=== PATIENT | female | born 1950 | race Caucasian/White ===

== ENCOUNTER → 2020-02-01 09:30 | Outpatient (BNVA) | payer MEDICARE, OTHER, SELFPAY | PROVIDERS: Family Provider Family Medicine; Referring Provider Nurse Practitioner Family; Visit Provider Podiatrist Foot & Ankle Surgery | DX: M79.672 Pain in left foot (principal) | CPT/HCPCS: 73630 ==

== ENCOUNTER 2020-03-03 07:06 | Outpatient (CLI) | payer MEDICARE, OTHER, SELFPAY ==
--- NOTE | 2020-03-03 08:00 | PFTS_ITS ---
Date of Study:03/03/20 Date of Dictation: 03/10/2020: MECHANICS: Forced vital capacity (FVC) is normal Forced expiratory volume in one second (FEV1) is normal. FEV1/FVC is normal. FLOW VOLUME LOOP: normal. . LUNG VOLUMES: Total lung capacity (TLC) is normal.. Residual volume (RV) is normal DIFFUSING CAPACITY FOR CARBON MONOXIDE: Normal . INTERPRETATION: The PFTs are normal. MTDD
== END 2020-03-03 07:07 | disposition home or self-care (01) ==
LOC: RT 07:11
PROVIDERS: PCP Family Medicine; Visit Provider Family Medicine
DX: R06.00 Dyspnea, unspecified (principal)
CPT/HCPCS: 94010; 94726; 94729

== ENCOUNTER 2020-04-07 07:38 | Observation (INO) | payer MEDICARE, OTHER, SELFPAY ==
[2020-04-07] VITALS (18 sets, daily range): BP systolic 102–125; BP diastolic 45–84; PULSE 68–88; RESP 12–18; TEMP 35.9–36.9; O2SAT 91–96; BMI 25.0
--- NOTE | 2020-04-07 07:46 | CT_ITS ---
WS: [id number] CT ABDOMEN PELVIS TECHNIQUE: Contrast-enhanced CT of the abdomen and pelvis with coronal and sagittal reformatted image s. CLINICAL INFORMATION: RLQ pain COMPARISON: None. DLP: 660.[address] scans at [facility] use at least one of these dose optimization techniques: automat ed exposure control; mA and/or kV adjustment per patient size (includes targeted exams where dose is matched to clinical indication); or iterative reconstruction. FINDINGS: Enhancing fluid distended appendix measuring 10 mm in short axis dimension. Surrounding inflammatory changes and about the appendix and right lower quadrant consistent with acute appendicitis. No eviden ce of drainable abscess or fluid collection. Appendix is retrocecal and traverses cephalad and medial . A few reactive lymph nodes in right lower quadrant. Normal gallbladder. Adrenal glands are normal. Normal renal parenchymal enhancement. No hydronephrosi s. Small renal cysts. Normal GE junction. Normal spleen. Normal pancreas. Normal aorta. Rectosigmoid constipation. No significant free fluid in the pelvis. CT/CT abdomen pelvis w con* [id number] IMPRESSION: 1. Findings compatible with acute appendicitis described above. Appendix is re trocecal and ascends cephalad and medial. 2. No evidence of drainable abscess or fluid collection. Notified Ky Guadarrama DO at 04/07/2020 9:13 AM. .
--- NOTE | 2020-04-07 07:50 | W.ED.ABDPA2 ---
HPI - Abdominal Pain General: Chief Complaint: Abdominal Pain Stated Complaint: RUQ pain Time Seen by Provider: 04/07/20 07:42 History of Present Illness: HPI narrative: Patient is a 69-year-old female that presents with abdominal pain. Patient states she had onset of midline abdominal pain around 8 PM last night. She states that as the night progressed the pain gradually moved to her right lower quadrant. She denies any radiation of the pain currently. She reports one episode of nausea and vomiting that was self-induced last night. She denies fevers or chills. She denies any urinary symptoms. She reports prior hysterectomy. Laying on her right side seems to make the pain worse but no other alleviating factors noted. She denies any diarrhea but feels as though her stool was harder than usual last night. MD elicited complaint: abdominal pain Onset (ago): hour(s) Location: RLQ Radiation: none Associated Symptoms: Reports nausea and vomiting; Denies change in stool character, constipation, diarrhea, dysuria, fever(s), hematuria, melena and syncope Review of Systems General: Reports: 10 or more systems reviewed and unremarkable except in HPI and below Const: Denies: fever(s) Eyes: Denies: blurry vision ENMT: Denies: nasal congestion Card: Denies: chest pain, palpitations, syncope or dyspnea on exertion Resp: Denies: dyspnea or productive cough GI: Reports: abdominal pain, nausea and vomiting; Denies: diarrhea, constipation, change in stool character or melena : Denies: dysuria or hematuria Musc: Denies: neck pain or back pain Skin/Breast: Denies: rash or new lesions Neuro: Denies: headache(s) or dizziness Psych: Denies: anxiety Teofilo/Lymph: Denies: easy bleeding, petechiae or purpura PFSH ED PFSH: Medical History Tremor Surgical History History of arthroscopic knee surgery bilateral knee by Dr. Bowers History of hysterectomy 2016 Social History Smoking and tobacco status: never smoked Alcohol intake: current Alcohol intake frequency: holidays/special occasions only Alcohol type: wine Physical Exam Const: COMMON NORMALS: no acute distress, patient oriented x3, alert and well nourished HENMT: COMMON NORMALS: normocephalic, atraumatic, EAC's normal, TM's normal bilaterally and Normal external nose present HEAD & SCALP: normocephalic and atraumatic FACE & SINUS: normal facial exam and face symmetric NOSE: Normal external nose present EXTERNAL AUDITORY CANAL: EAC's normal TYMPANIC MEMBRANE: TM's normal bilaterally MOUTH: Normal oral and palatal mucosa present and moist mucous membranes abnormal Eye: COMMON NORMALS: Equal, round and reactive pupils present PUPIL: Yes Equal, round and reactive pupils present Neck/C-Spine: GENERAL: Yes normal visual inspection Chest: COMMONS NORMALS: normal inspection of the chest Resp: COMMON NORMALS: normal respiratory effort, No retractions, No use of accessory muscles and clear to auscultation bilaterally AUSCULTATION: clear to auscultation bilaterally Cardio: COMMON NORMALS: regular rate, regular rhythm, S1 normal heart sound present, S2 normal heart sound present and No murmurs present (Cardio) RATE: regular rate RHYTHM: regular rhythm HEART SOUNDS: S1 normal heart sound present and S2 normal heart sound present GI: COMMON NORMALS: No hepatosplenomegaly present INSPECTION: Yes normal to inspection AUSCULTATION: Yes normoactive bowel sounds PALPATION: Yes Tenderness to palpation present (GI), Yes Guarding due to palpation present (GI) in the RLQ and Yes No hepatosplenomegaly present RECTAL EXAM: deferred : COMMON NORMALS: Yes no CVA tenderness BLADDER/KIDNEY EXAM: Yes no CVA tenderness Back/Pelvis: COMMON NORMALS: no CVA tenderness Neuro: COMMON NORMALS: patient oriented x3 and moves all extremities SENSORIUM/ORIENTATION: Yes alert SPEECH: speech normal Psych: COMMON NORMALS: mental status grossly normal Skin: COMMON NORMALS: no rashes or lesions noted GENERAL SKIN EXAM: no rashes or lesions noted Course Vital Signs: Vital signs: Vital Signs Temperature 97.3 F L 04/07/20 07:44 Pulse Rate 73 04/07/20 10:07 Respiratory Rate 15 04/07/20 07:44 Blood Pressure 114/53 04/07/20 10:07 Pulse Oximetry 96 04/07/20 10:07 MDM - Abdominal Pain MDM Narrative: Medical decision making narrative: Patient remained stable in ED. Noted to have an 18.6 thousand white count. Remainder of her lab works unremarkable. CT of her abdomen pelvis demonstrates findings consistent with acute appendicitis. Case was discussed with Dr. Russ, surgeon on-call and he accepts the patient for observation admission. He would like normal saline started as well as Zosyn. Lab Data: Labs: Lab Results 04/07/20 04/07/20 04/07/20 Range/Units 08:00 08:08 08:08 WBC 18.6 H (4.0-10.0) 10^3/ uL RBC 4.72 (4.1-5.3) 10^6/u L Hgb 13.8 (11.5-15.3) g/dL Hct 41.6 (37.0-47.0) % MCV 88.1 (81-99) fL MCH 29.2 (28.0-34.0) pg MCHC 33.2 (30.0-36.0) g/dL RDW 12.3 (12.1-15.1) % Plt Count 207 (130-400) 10^3/c mm MPV 11.5 H (7.4-10.4) fL Neut % (Auto) 84.0 % Lymph % (Auto) 7.0 % [place] % (Auto) 7.9 % Eos % (Auto) 0.2 % Baso % (Auto) 0.3 % Neut # (Auto) 15.61 H (1.8-7.7) 10^3/u L Lymph # (Auto) 1.3 (0.8-4.8) 10^3/u L [place] # (Auto) 1.5 H (0.2-0.9) 10^3/u L Eos # (Auto) 0.0 (0.0-0.8) 10^3/u L Baso # (Auto) 0.1 (0.0-0.1) 10^3/u L Nucleated RBC % (a uto) 0 % Nucleated RBCs # 0.0 /100WBC Sodium 137 (136-145) mmol/L Potassium 4.0 (3.5-5.1) mmol/L Chloride 101 (98-107) mmol/L Carbon Dioxide 25 (22-29) mmol/L Anion Gap 15.0 (5-19) BUN 14 (8-23) mg/dL Creatinine 0.6 (0.5-0.9) mg/dL GFR Calculation 99.7 (90-130) mL/min Glucose 127 H (65-115) mg/dL Calculated Osmolal ity 286 (285-295) mOsm/k g Calcium 9.3 (8.5-10.5) mg/dL Total Bilirubin 0.4 (0.15-1.2) mg/dL AST 20 (0-32) U/L ALT 15 (0-33) U/L Alkaline Phosphata se 87 (35-105) IU/L Total Protein 7.2 (6.6-8.7) g/dL Albumin 4.3 (3.5-5.2) g/dL Globulin 2.9 (1.3-4.6) g/dL Lipase 24 (13-60) U/L Urine Color Yellow (Yellow) Urine Appearance Clear (CLEAR) Urine pH 8 H (5-7) Ur Specific Gravit y 1.010 (1.005-1.030) Urine Protein Neg (Negative) Urine Glucose (UA) Norm (Normal) Urine Ketones Negative (Negative) Urine Blood Neg (Negative) Urine Nitrate Negative (Negative) Urine Bilirubin Neg (Negative) Prot Sulfosalicyli c Acd Negative (Negative) Urine Urobilinogen Norm (Negative) mg/dL Ur Leukocyte Martina ase Negative (Negative) Discharge Plan Discharge Patient Disposition: Placed in Observation Clinical Impression: Acute appendicitis Qualifiers: Acute appendicitis type: with localized peritonitis Appendicitis gangrene presence: without gangrene Appendicitis perforation presence: without perforation Appendicitis abscess presence: without abscess Qualified Code(s): K35.30 - Acute appendicitis with localized peritonitis, without perforation or gangrene Coding Level of Care Code ED Geophysical Computer for [facility] Fwd Exam Comprehensive
[2020-04-07] MEDS: morphine 4 mg/mL SDV 1 mL IVP (08:10)
[2020-04-07] MEDS: ondansetron 2 mg/ML SDV 2 mL 4 MG IVP (08:10)
[2020-04-07 08:19] LABS: Basophils # 0.1 10^3/uL (0.0-0.1); Basophils % 0.3 %; Eosinophils % 0.2 %; Hematocrit 41.6 % (37.0-47.0); Hemoglobin 13.8 g/dL (11.5-15.3); Lymphocytes # 1.3 10^3/uL (0.8-4.8); Mean Corpuscular HGB Conc 33.2 g/dL (30.0-36.0); Mean Corpuscular Hemoglobin 29.2 pg (28.0-34.0); Mean Corpuscular Volume 88.1 fL (81-99); Mean Platelet Volume 11.5 fL (7.4-10.4); Monocytes # 1.5 10^3/uL (0.2-0.9); Monocytes % 7.9 %; Neutrophils # 15.61 10^3/uL (1.8-7.7); Nucleated Red Blood Cells % 0 %; Platelet Count 207 10^3/cmm (130-400); Red Blood Count 4.72 10^6/uL (4.1-5.3); Red Cell Distribution Width 12.3 % (12.1-15.1); White Blood Count 18.6 10^3/uL (4.0-10.0)
[2020-04-07 08:35] LABS: Alanine Aminotransferase 15 U/L (0-33); Albumin Level 4.3 g/dL (3.5-5.2); Alkaline Phosphatase 87 IU/L (35-105); Aspartate Amino Transferase 20 U/L (0-32); Blood Urea Nitrogen 14 mg/dL (8-23); Calcium 9.3 mg/dL (8.5-10.5); Carbon Dioxide 25 mmol/L (22-29); Chloride 101 mmol/L (98-107); Globulin 2.9 g/dL (1.3-4.6); Glomerular Filtration Rate 99.7 mL/min (90-130); Glucose 127 mg/dL (65-115); Lipase 24 U/L (13-60); Osmolality Calculated 286 mOsm/kg (285-295); Sodium 137 mmol/L (136-145); Total Bilirubin 0.4 mg/dL (0.15-1.2); Total Protein 7.2 g/dL (6.6-8.7)
[2020-04-07 08:49] LABS: Add Urine Microscopic? NO
--- NOTE | 2020-04-07 08:51 | PC.NURSE ---
pt to CT by stretcher with tech
[2020-04-07] MEDS: iohexol 300 mg/mL 100 mL Btl IV (08:58)
[2020-04-07 09:09] LABS: Bilirubin Urine Neg (Negative); Blood Urine Neg (Negative); Glucose Urine UA Norm (Normal); Ketones Urine Negative (Negative); Leukocyte Esterase Urine Negative (Negative); Nitrate Urine Negative (Negative); Protein Urine Neg (Negative); Sulfosalicylic Acid Urine Negative (Negative); Urine Appearance Clear (CLEAR); Urine Color Yellow (Yellow); Urobilinogen Urine Norm (Negative); pH Urine 8 (5-7)
--- NOTE | 2020-04-07 09:17 | PM.HP ---
Providers/Chief Complaint Primary Care Provider: Lake Vela MD Chief Complaint: RUQ pain History of Present Illness HPI Ms. Jade Hugo is a pleasant 69 year old female presents to the emergency department with worsening abdominal pain that started in the upper abdomen and shifted towards the right lower quadrant since yesterday. Patient describes the pain as being sharp not being referred, moving around makes it worse and laying down flat makes it better and morphine IV. Patient reports no history of previous episodes and she had a colonoscopy about 5 years ago that was normal per her description. She denies any other medical comorbidities except for anxiety and essential tremors. Further work-up in the emergency department showed leukocytosis of 18.[address] scan of the abdomen and pelvis was done. CT scan of the abdomen and pelvis showed: Enhancing fluid distended appendix measuring 10 mm in short axis dimension. Surrounding inflammatory changes and about the appendix and right lower quadrant consistent with acute appendicitis. No evidence of drainable abscess or fluid collection. Appendix is retrocecal and traverses cephalad and medial. A few reactive lymph nodes in right lower quadrant. Normal gallbladder. Adrenal glands are normal. Normal renal parenchymal enhancement. No hydronephrosis. Small renal cysts. Normal GE junction. Normal spleen. Normal pancreas. Normal aorta. Rectosigmoid constipation. No significant free fluid in the pelvis. CT/CT abdomen pelvis w con* [id number] IMPRESSION: 1. Findings compatible with acute appendicitis described above. Appendix is retrocecal and ascends cephalad and medial. 2. No evidence of drainable abscess or fluid collection. General surgery was consulted for further evaluation and management Patient reports no history of bleeding or anesthesia problems Patient was seen and evaluated in emergency department room #12 Review of Systems General: Reports: 10 or more systems reviewed and unremarkable except in HPI and below Medications/Allergies Home Medications Medication Instructions Recorded Confirmed Last Taken Type diazepam 2 mg tablet 2 mg PO BID PRN 02/01/20 04/07/20 04/06/20 History naproxen 500 mg tablet 500 mg PO BID PRN 02/01/20 04/07/20 Unknown History propranolol 80 mg PO BID 04/07/20 04/07/20 04/06/20 History Allergies Allergy/AdvReac Type Severity Reaction Status Date / Time No Known Allergies Allergy Verified 04/07/20 09:47 PFSH Acute PFSH: Medical History Tremor Surgical History History of arthroscopic knee surgery bilateral knee by Dr. Bowers History of hysterectomy 2016 Social History Smoking and tobacco status: never smoked Alcohol intake: current Alcohol intake frequency: holidays/special occasions only Alcohol type: wine Vitals/I&O/Wt Last Vital Signs Temp 97.3 F L 04/07/20 07:44 Pulse 70 04/07/20 08:50 Resp 15 04/07/20 07:44 BP 104/53 04/07/20 08:50 Pulse Ox 92 04/07/20 08:50 Weight last 48 hrs Weight 160 lb Physical Exam Narrative: EXAM NARRATIVE: Patient is conscious alert oriented X3 BMI 25.1 Head and neck examination PERRLA no masses no cervical lymphadenopathy no jaundice Cardiac examination audible S1-S2 no murmurs no gallops no arrhythmias Chest is clear bilateral,abscence of Rhonchi or wheezes,no surgical emphysema Abdomen right lower quadrant tenderness, with localized rigidity and guarding maximal tenderness appreciated at McBurney's point nondistended otherwise soft no organomegaly guarding or rigidity/no signs of peritonitis Extremities no cyanosis no clubbing no edema Data : 04/07/20 08:08 04/07/20 08:08 A&P Assessment and plan (1) Acute appendicitis: After thorough history physical examination and reviewing the chart and images with my personal interpretion of the CT scan images, I counseled the patient for laparoscopic appendectomy possible open. Indications, risks, benefits and alternatives were all discussed with the patient and did agree to proceed. Rationale was carefully and clearly discussed with the patient.Appropriate informed consent have been reviewed and signed Status: Acute Attestations Medical Necessity Statement*: Observation for perioperative care for appendicitis Time Spent in Patient Care: (>than 50% of time spent in counselling and/or direct pt care on unit). Coding Level of Care Code Acute Assistant Infant Toddler Teacher for santos Chatterjee Diagnoses Acute appendicitis K35.80
--- NOTE | 2020-04-07 09:29 | PC.PHAR ---
pt takes Propranolol (2) 40mg = 80mg BID. [facility] filled as 40mg TID- Dr. Vela's office verified he changed her to 80mg BID.
[2020-04-07] MEDS: piperacillin-tazobactam 2.25 GM in sodium chloride 0.9% (plus) 50 ML IV (10:05)
[2020-04-07] MEDS: sodium chloride 0.9% 1,000 ML 100 ML IV ×2 (10:05→20:17)
[2020-04-07] MEDS: sodium chloride 0.9% 1,000 ML 30 ML IV (13:30)
[2020-04-07] MEDS: lidocaine 2% INJ 20 mL INJECTION (14:31)
--- NOTE | 2020-04-07 14:33 | P.OP_ITS ---
Operative Report Date of procedure: April 07, 2020 Pre-op Diagnosis: Acute appendicitis Post-op diagnosis: other (Acute retrocecal suppurative appendicitis) Procedure Done: Laparoscopic appendectomy Specimens removed/disposition: Appendix Surgeon: Justin Russ Booth Cashier: Surgical efra Cobian Circulating nurse Chelsea Anesthesia: General (ESTEBANA DIE CAST PATTERNMAKER Anderson) Estimated blood loss (mL): 5 Condition: stable Brief History: This is a pleasant 69 years old female patient presenting with worsening abdominal pain was found to have acute appendicitis. Full H&P per chart. After thorough history physical examination and reviewing the chart and images with my personal interpretion, I counseled the patient for laparoscopic appendectomy possible open. Indications, risks, benefits and alternatives were all discussed with the patient and did agree to proceed. Rationale was carefully and clearly discussed with the patient.Appropriate informed consent have been reviewed and signed Procedure: Patient after being identified in the holding area and asked to void urine, and informed consent per chart ,patient was then taken back to the OR pl aced in supine position got intubated by anesthesia left arm was tucked tucked ,Timeout was done verifying the patient's name/date of /planned procedure and destination after the procedure, all were in agreement., preoperative antibiotics administered per protocol. prep and drape of the abdomen was done under the usual sterile technique. Started by longitudinal skin incision supraumbilical using a Davis trocar technique safe entry to the abdominal cavity was achieved verified by using 10 mm zero degree laparoscopy, switched to a 30? scope under direct visualization a suprapubic 5 mm trocar was inserted followed by another 5 mm trocar inserted in the left lower quadrant, I was able to position the patient in an T Flores and left side down, dissection of the prececal acutely inflamed appendix with suppuration there was some adhesions towards the lateral pelvic wall that was taken down by sharp and blunt dissection, attention was deviated to the healthy base of the appendix where I had to switch the camera to 5 mm 30? scope got introduced through the left lower quadrant and through the Davis trocar under direct visualization a GI stapler 45 mm blue load was applied at the healthy part of the base of the appendix, and an Endoloop PDS was applied onto the mesoappendix for control , the appendix was then retrieved in an Endo Catch bag, final survey was done of the abdomen and pelvis , irrigation with warm saline, and suction was obtained, were mercury fluid like in the pelvis due to reaction from the inflamed appendix. Multiple 5 mm clips were applied onto the mesoappendix as well as the appendectomy staple line and a right lateral pelvic wall for minimal oozing. Final look laparoscopy was done showing no other abnormalities or injuries, all trocars were taken out under direct visualization after the supraumblical trocar site was closed by 0 Vicryl sutures under direct vision using fascial closure device ,followed by skin closure using 4-0 Monocryl of all trocar site incisions. infiltration of local lidocaine 2% was done to all incision sites.Dry dressing was applied. Count was completed at the end of the procedure for [place] , sponges and instruments Patient tolerated the procedure well and was transferred to the recovery area after extubation. I was present for the whole entire procedure
--- NOTE | 2020-04-07 15:39 | ANE.PACU2 ---
Inpatient post-anesthesia follow up: Airway intact: Yes Vital signs: Temperature 98 F Pulse Rate [Right Radial] 85 Pulse Rate 73 Respiratory Rate 17 Blood Pressure [Ri ght Arm] 119/65 Blood Pressure 116/58 Pulse Oximetry 93 Oxygen Delivery Me thod Room Air Oxygen Flow Rate Fraction of Inspir ed Oxygen Hydration adequate: Yes Nausea and vomiting: No Pain level: 2 Mental status: Baseline
[2020-04-07] MEDS: piperacillin-tazobactam 3.375 GM in sodium chloride 0.9% (plus) 50 ML IV (17:43)
[2020-04-08] VITALS: BP 96/57; PULSE 74; RESP 18; TEMP 36.4; O2SAT 91
[2020-04-08] MEDS: piperacillin-tazobactam 3.375 GM in sodium chloride 0.9% (plus) 50 ML IV ×2 (01:29→08:20)
--- NOTE | 2020-04-08 01:35 | PC.NURSE ---
Pt denies passing gas at this time. States she is not having pain unless she gets up & moves around. Refusing pain meds at this time. Denies nausea.
[2020-04-08 03:01] LABS: Basophils % 0.1 %; Hematocrit 37.8 % (37.0-47.0); Hemoglobin 12.5 g/dL (11.5-15.3); Mean Corpuscular HGB Conc 33.1 g/dL (30.0-36.0); Mean Corpuscular Hemoglobin 29.3 pg (28.0-34.0); Mean Corpuscular Volume 88.7 fL (81-99); Monocytes # 0.4 10^3/uL (0.2-0.9); Monocytes % 2.6 %; Neutrophils # 12.86 10^3/uL (1.8-7.7); Neutrophils % 89.7 %; Nucleated Red Blood Cells % 0 %; Platelet Count 191 10^3/cmm (130-400); Red Blood Count 4.26 10^6/uL (4.1-5.3); Red Cell Distribution Width 12.7 % (12.1-15.1); White Blood Count 14.4 10^3/uL (4.0-10.0)
[2020-04-08] MEDS: HYDROcodone-acetaminophen 5-325 mg Tablet 1 TAB PO (03:11)
[2020-04-08 03:24] LABS: Anion Gap 11.9 (5-19); Blood Urea Nitrogen 10 mg/dL (8-23); Calcium 8.8 mg/dL (8.5-10.5); Carbon Dioxide 26 mmol/L (22-29); Chloride 105 mmol/L (98-107); Glomerular Filtration Rate 123.1 mL/min (90-130); Glucose 138 mg/dL (65-115); Osmolality Calculated 289 mOsm/kg (285-295); Potassium 3.9 mmol/L (3.5-5.1); Sodium 139 mmol/L (136-145)
[2020-04-08 04:00] VITALS: BP 107/61; PULSE 74; RESP 16; TEMP 36.5; O2SAT 90
--- NOTE | 2020-04-08 05:52 | PC.NURSE ---
Pt up to bathroom, states she has finally passed a little gas.
[2020-04-08] MEDS: sodium chloride 0.9% 1,000 ML 100 ML IV (06:15)
--- NOTE | 2020-04-08 06:15 | PM.SDS ---
Short Stay Summary Providers Date of Admit/Discharge: 04/08/20 Attending Provider: Justin Russ MD Primary Care Provider: Lake Vela MD Chief Complaint: RUQ pain HPI History of Present Illness Jade Hugo is a 69 year old female resented to the emergency department with worsening abdominal pain was found to have acute appendicitis. Review of Systems General: Reports: 10 or more systems reviewed and unremarkable except in HPI and below Home Meds/Allergies Home Medications and Allergies Home Medications Medication Instructions Recorded Confirmed Type diazepam 2 mg tablet 2 mg PO BID PRN 02/01/20 04/07/20 History naproxen 500 mg tablet 500 mg PO BID PRN 02/01/20 04/07/20 History propranolol 80 mg PO BID 04/07/20 04/07/20 History Allergies Allergy/AdvReac Type Severity Reaction Status Date / Time No Known Allergies Allergy Verified 04/07/20 09:47 PFSH Acute PFSH: Medical History Acute appendicitis Tremor Surgical History History of arthroscopic knee surgery bilateral knee by Dr. Bowers History of hysterectomy 2016 Social History Smoking and tobacco status: never smoked Alcohol intake: current Alcohol intake frequency: holidays/special occasions only Alcohol type: wine Vitals/I&O/Wt Last Vital Signs Temp 97.7 F 04/08/20 04:00 Pulse 74 04/08/20 04:00 Resp 16 04/08/20 04:00 BP 107/61 04/08/20 04:00 Pulse Ox 90 04/08/20 04:00 04/07/20 04/07/20 04/08/20 14:59 22:59 06:59 Intake Total 150 / 150 1410 / 1560 1196.667 / 2756.667 Output Total 400 / 420 1850 / 2270 Balance 130 / 130 1010 / 1140 -653.333 / 486.667 Weight last 48 hrs Weight 160 lb Physical Exam Narrative: EXAM NARRATIVE: Patient is conscious alert oriented X3 BMI 25 Head and neck examination PERRLA no masses no cervical lymphadenopathy no jaundice Cardiac examination audible S1-S2 no murmurs no gallops no arrhythmias Chest is clear bilateral,abscence of Rhonchi or wheezes,no surgical emphysema Abdomen nontender except mildly at the incision site nondistended soft no organomegaly guarding or rigidity/no signs of peritonitis Extremities no cyanosis no clubbing no edema Hospital Course Hospital Course Patient undergone uneventful postoperative course status post laparoscopic appendectomy for suppurative appendicitis. Tolerated p.o. intake and continued to pass gas and had her pain under control. Continue to have good urine output and stable vital signs. Discharge Summary Patient met the appropriate criteria for safe discharge from the hospital on oral antibiotics and pain medications the plan to follow-up with surgery office in 10 days SSS Data Data Completed and Pending: Completed Studies During Hospitalization Category Date Time Status CT abdomen pelvis w con* [id number] Urge nt Cat Scan 04/07/20 07:46 Completed Pending at discharge Category Date Time Status ES surgery / GI i mages Routine Exams 04/07/20 13:10 Taken Pathology: Surgic al [PTH] Routine Pth 04/07/20 14:39 Ordered Diagnoses at Discharge Discharge Diagnosis (1) Acute appendicitis: Status: Resolved Permanent problem details: Condition resolved Qualifiers: Acute appendicitis type: with localized peritonitis Appendicitis abscess presence: without abscess Appendicitis gangrene presence: without gangrene Appendicitis perforation presence: without perforation Qualified Code(s): K35.30 - Acute appendicitis with localized peritonitis, without perforation or gangrene Discharge Plan Discharge Patient Disposition: Home Condition: Stable Prescriptions: [place] 5-325 mg tablet 1 tab PO Q6H PRN (Reason: pain) Qty: 28 RF: 0 Augmentin 875-125 mg tablet 1 tab PO Q12H 7 Days Qty: 14 RF: 0 Continued diazepam [Valium] 2 mg tablet 2 mg PO BID PRN (Reason: Anxiety) RF: 0 propranolol 40 mg tablet 80 mg PO BID RF: 0 Held naproxen 500 mg tablet 500 mg PO BID PRN (Reason: Pain) RF: 0 Hold Instructions: Resume on 04/14/20. Discharge Orders: Discharge Order (Routine); Ordered 04/08/20 Ordered By: Justin Russ Referrals: Justin Russ MD [Physician] - 04/20/20 1:15 pm (Return to surgery office in 10 days) Lake Vela MD [Primary Care Provider] - 04/14/20 1:20 pm Discharge Diet: Advance as tolerated Discharge Activity: Limit activity as instructed Patient Instructions: Hydrocodone/Acetaminophen (By mouth), Amoxicillin/Clavulanate Potassium (By mouth), Appendicitis (GEN), Laparoscopic Appendectomy (DC) Activity Restrictions/Additional Instructions: 1. Patient can shower after 48 hours from surgery 2. Remove surgical glue 7 to 10 days after surgery, if there is a secondary dressing can take down after 48 hours. 3. Up and walking as tolerated 4. Do not lift more than 5 pounds first 2 weeks after surgery and not more than 25 pounds 6 to 8 weeks after surgery. 5. Do not operate heavy machinery or drive while using pain medications. 6.Contact the office or return to the ER for worsening nausea vomiting fevers or chills, or noticing any redness around incision sites or discharge. Attestations Medical Necessity Statement*: Observation status perioperatively for laparoscopic appendectomy for pain control and antimicrobial therapy in the form of IV Zosyn Time Spent in Patient Care*: less than 30 min Specific Discharge Activities: Specific discharge activities: educating patient and educating and/or supporting family/caregiver Status at Discharge: Cognitive status at discharge: cognitively intact, Behavioral status at discharge: cooperative, Overall status at discharge: patient is progressing back to baseline Quality Metrics Clinical Quality Measures: During this hospital stay, did patient experience: None Coding Level of Care Code Acute Interlibrary Loan Services Librarian for Oscar Chatterjee Diagnoses Acute appendicitis K35.30 Acute appendicitis type: with localized peritonitis Appendicitis abscess presence: without abscess Appendicitis gangrene presence: without gangrene Appendicitis perforation presence: without perforation
[2020-04-08 07:55] VITALS: BP 95/57; PULSE 68; RESP 18; TEMP 36.6; O2SAT 91
--- NOTE | 2020-04-08 10:24 | PC.CHAP ---
Pastoral Care Encounter/Spiritual Assessment Type of Contact [] Declined clocksmith visit [] Patient/Family/Request visit [] Outpatient visit [] Follow-up visit [] Physician referral [] Code/Alert [xx] Routine visit [] Staff referral [] Actively dying [] Patient sleeping [] Family support [] [] Out of room [] Palliative care [] [] Receiving care in room [] Pre-surgical visit [] Trauma [] Long length of stay [] ICU visit [] Other: Relational/Emotional Strength [x] Patient feels connected with others/family/visitors/staff [] Distress [] Loneliness/isolation [] Abandonment Spirituality of Patient [x] Person of Stephanie [] Attends Restorationist of their Stephanie [] Believes in Prayer [] Reads Bible or Faith materials [] There are Spiritual issues to be addressed Fare Enforcement Officer Interventions [x] Prayer [x] Active listening [x] Non-anxious presence [x] Spiritual/emotional support [x] Crisis/trauma care [] Spiritual counseling [] Bereavement support [] Provided bereavement packet [] Provided Bible/devotional materials [] Provided toy/stuffed animal, coloring book to patient or family member [] Provided Communion [] Anointing/[place] [] Salvation [] Completed spiritual assessment [] Other: Impact on Illness or Injury [] Angry [] Fearful [] Anxious [] Often cries [] Exhaustion [] Unable to work [] Unable to attend restoration [] Unable to walk/stand [] Unable to read [] Unable to drive [] Unable to eat/drink [] Unable to sleep [] Unable to be with family [] Patient intubated [] Other: Summary patient in alots of pain Time spent with patient 10 min
[2020-04-08 12:00] VITALS: BP 99/57; PULSE 72; RESP 18; TEMP 36.3; O2SAT 97
[2020-04-08 13:29] VITALS: BP 99/57; PULSE 72; RESP 18; TEMP 36.3; O2SAT 97
== END 2020-04-08 13:11 | disposition home or self-care (01) ==
LOC: ER 10:13 → MEDSURG 10:20
PROVIDERS: Admitting Provider Surgery; Emergency Provider Emergency Medicine; PCP Family Medicine; Visit Provider Surgery
PROC: 0DTJ4ZZ Resection of Appendix, Percutaneous Endoscopic Approach (ICD-10-PCS; CPT 44970; principal; 2020-04-07 12:20)
DX: K35.80 Unspecified acute appendicitis (principal)
CPT/HCPCS: 44970; 36415; 74177; 80048; 80053; 81003; 83690; 85025; 88304; 96365; 96366; 96374; 96375; 99285; G0378; J0131; J1100; J2270; J2370; J2405; J2543; J2704; J2710; J3010; J3490; J7030; Q9967

== ENCOUNTER → 2020-08-17 15:05 | Outpatient (BNVA) | payer MEDICARE, OTHER, SELFPAY | PROVIDERS: PCP Family Medicine; Visit Provider Surgery | DX: Z41.9 Encounter for procedure for purposes other than remedying health state, unspecified (principal); Z20.822 Contact with and (suspected) exposure to COVID-19 | CPT/HCPCS: 87635 ==

== ENCOUNTER 2020-08-22 06:19 | Day surgery (SDC) | payer MEDICARE, OTHER, SELFPAY ==
[2020-08-19 08:18] VITALS: BMI 24.3
[2020-08-22] VITALS (7 sets, daily range): BP systolic 108–131; BP diastolic 61–100; PULSE 62–76; RESP 17–20; TEMP 36.1–36.5; O2SAT 94–98
[2020-08-22] MEDS: acetaminophen 1,000 MG/100 ML PIGGYBACK 400 MG IV (06:59)
[2020-08-22] MEDS: sodium chloride 0.9% 1,000 ML 30 ML IV (06:59)
--- NOTE | 2020-08-22 07:38 | ANES.PREANE2 ---
Pre-Anesthetic Assessment Pre-Anesthetic Assessment: Height/Weight: Height 1.7 m Weight 70.307 kg Temp Pulse Resp BP Pulse Ox 97.7 F 63 18 108/73 98 08/22/20 06:32 08/22/20 06:32 08/22/20 06:32 08/22/20 06:32 08/22/20 06:32 Preop Diagnosis: Symptomatic hemorrhoids Proposed Procedure: Operation Date: 08/22/20 07:45 Proposed Procedures p Colonoscopy [id number] k62.5(Not Applicable) - Justin Russ MD s Exam Under Anesthesia(Not Applicable) - Justin Russ MD s possible Hemorroidectomy(Not Applicable) - Justin Russ MD Was Beta Valentina taken within 24 hours: Yes (takes for tremors) Was Clonidine taken within 24 hours: N/A Last intake: Intake Last Liquid Date 08/21/20 Last Liquid Time 21:00 Last Solid Date 08/13/20 Last Solid Time 19:00 Social: Social History: No alcohol and No tobacco Exam: Pre-Anes Outpt Exam: alert, oriented x 3, clear to auscultation bilaterally and regular rate & rhythm Airway: Submandibular: WNL Cervical ROM: WNL Dentition: Full History/ROS: No significant history except as noted Neuropsych: Comments: tremors Anesthetic Plan: ASA status: 2 Anesthesia: General Risk of > 500 ml blood loss (7ml/kg in children): No Meds/Allergies Current Medications: Current Medications Generic Name Dose Route Start Last Admin Trade Name Freq PRN Reason Stop Dose Admin Sodium Chloride 1,000 mls @ 30 ml s/hr 08/22/20 06:30 08/22/20 06:59 Sodium Chloride 0.9% IV 08/23/20 06:29 30 mls/hr .Q24H EZRA Administration PFSH Anesthesia PFSH: Medical History Acute appendicitis Condition resolved Tremor Surgical History History of arthroscopic knee surgery bilateral knee by Dr. Bowers History of hysterectomy 2015 Social History Smoking and tobacco status: never smoked Alcohol intake: current Alcohol intake frequency: holidays/special occasions only Alcohol type: wine Data Anesthesia Cardiac Studies: No Data to Display
--- NOTE | 2020-08-22 08:13 | W.PM.OPSUD ---
Surgery/Procedure H&P Update DATE OF PROCEDURE: August 22, 2020 DATE H&P PERFORMED: 07/28/20 H&P UPDATE INFORMATION: I have reviewed H&P completed within last 30 days, I have examined patient prior to procedure and No changes to prior documentation PREOP DIAGNOSIS: Symptomatic hemorrhoids PRIMARY INDICATION FOR PROCEDURE: The same PLANNED PROCEDURE: Operation Date: 08/22/20 07:45 Proposed Procedures p Colonoscopy [id number] k62.5(Not Applicable) - Justin Russ MD s Exam Under Anesthesia(Not Applicable) - Justin Russ MD s possible Hemorroidectomy(Not Applicable) - Justin Russ MD
[2020-08-22] MEDS: piperacillin-tazobactam 3.375 GM in sodium chloride 0.9% (plus) 50 ML IV (08:28)
--- NOTE | 2020-08-22 09:22 | PM.OP ---
Operative Report Date of procedure: August 22, 2020 Pre-op Diagnosis: Symptomatic hemorrhoids Post-op diagnosis: other (Normal colonoscopy and symptomatic right lower lateral hemorrhoid) Post-op Findings: External/internal hemorrhoids /sigmoid colon diverticulosis otherwise normal colonoscopy findings Procedure Done: Colonoscopy Examination under anesthesia with hemorrhoidectomy of right lower lateral hemorrhoid Implants: Packing using Surgicel and Xeroform Specimens removed/disposition: Right lower lateral hemorrhoid Surgeon: Justin Russ Travel Administrator: Kelley Andino Circulating nurse Dia Fowler Anesthesia: MAC (truck railroad and bus motor mechanic Cassius) Estimated blood loss (mL): 5 Condition: stable Disposition: same day Brief History: Symptomatic hemorrhoids. Full H&P informed consent per chart Procedure: Patient was identified in the holding area, was taken to the OR placed first in supine position,IV antibiotics were given with induction time-out was done verifying the patient's name, date of , and procedure, all were in agreement. IV propofol was given by the anesthesia provider, patient was placed in left lateral position.All pressure points were padded. Perianal examination showed right and left lower lateral hemorrhoids right is larger than the left otherwise no anorectal masses Following that a digital rectal examination was done, the colonoscope was then introduced via the anus under direct visualization, all the way to the cecum, prep of the colon was appropriate, there were no polyps identified or masses, yet sigmoid diverticular disease was seen medium in size few without complications or bleeding., the scope was then retrieved back ,time for withdrawal exceeded 6 minutes, carbon dioxide gas was deflated on the way out. Retroflex was done at the end showing showed internal/external hemorrhoid larger on the right side. Prep and drape of the perineum was done under the usual sterile technique Injection of 30 mL Exparel right side only,guiding point was the ischial spine on each side located by the examining finger A lubricated self-retaining proctoscope was inserted, hemostats were applied and using harmonic scalpel the right lower lateral hemorrhoid was excised and sent for permanent pathology, followed by hemostasis and continuous 2-0 chromic catgut was used to approximate the wound edges and an additional interrupted 2-0 chromic catgut was used for hemostasis as well. Hemostasis was achieved, irrigation was done. A piece of Surgicel /piece of Xeroform impregnated with lidocaine 2% jelly was placed in the anal canal, attached to 2-0 silk suture, to help retrieving it by the patient later on ABDs were applied followed by surgical pants Patient was repositioned to supine position, counts of instruments,needles and sponges were completed at the end of the procedure Patient was taken to the recovery area in stable condition I was present for the whole entire procedure
--- NOTE | 2020-08-22 09:39 | SUR.PHASEI ---
PT AWAKE ALERT TALKATIVE DENIES PAIN AND NAUSEA, PT GIVEN WARM BLANKETS X 2 VSS
--- NOTE | 2020-08-22 17:09 | ANE.PACU2 ---
Inpatient post-anesthesia follow up: Airway intact: Yes Vital signs: Temperature 97.0 F Pulse Rate 62 Respiratory Rate 18 Blood Pressure 126/64 Pulse Oximetry 96 Oxygen Delivery Me thod Room Air Oxygen Flow Rate Fraction of Inspir ed Oxygen Hydration adequate: Yes Nausea and vomiting: No Pain level: 1 Mental status: Baseline
== END 2020-08-22 09:35 | disposition home or self-care (01) ==
PROVIDERS: PCP Family Medicine; Visit Provider Surgery
PROC: 0DJD8ZZ Inspection of Lower Intestinal Tract, Via Natural or Artificial Opening Endoscopic (ICD-10-PCS; CPT 45378; principal; 2020-08-22 07:45)
PROC: (CPT 45378; 2020-08-22 07:45)
PROC: (CPT 45378; 2020-08-22 07:45)
DX: K64.8 Other hemorrhoids (principal)
CPT/HCPCS: 45378; 46255; 88304; 96365; C9290; J2543; J2704; J3010; J3490; J7030

== ENCOUNTER 2020-11-24 09:09 | Outpatient (RCR) | payer MEDICARE, OTHER, SELFPAY | END 2020-12-11 23:59 | disposition home or self-care (01) | LOC: SPT 09:09 | PROVIDERS: PCP Family Medicine; Referring Provider Family Medicine; Visit Provider Family Medicine | DX: M19.012 Primary osteoarthritis, left shoulder (principal); M25.519 Pain in unspecified shoulder | CPT/HCPCS: 97110; 97162 ==

== ENCOUNTER 2020-12-12 06:00 | Outpatient (RCR) | payer MEDICARE, OTHER, SELFPAY | END 2021-01-02 23:59 | disposition home or self-care (01) | LOC: SPT 06:00 | PROVIDERS: PCP Family Medicine; Referring Provider Family Medicine; Visit Provider Family Medicine | DX: M25.519 Pain in unspecified shoulder (principal) | CPT/HCPCS: 97110 ==

== ENCOUNTER → 2021-05-13 10:30 | Outpatient (BNVA) | payer MEDICARE, OTHER, SELFPAY | PROVIDERS: PCP Family Medicine; Visit Provider Registered Nurse Neonatal Intensive Care | DX: N39.0 Urinary tract infection, site not specified (principal); R39.9 Unspecified symptoms and signs involving the genitourinary system | CPT/HCPCS: 81000; 87077; 87086; 87184 ==

== ENCOUNTER 2021-08-14 08:52 | Emergency (ER) | payer MEDICARE, OTHER, SELFPAY ==
[2021-08-14 09:04] VITALS: BP 102/57; PULSE 69; RESP 16; TEMP 36.8; O2SAT 96; BMI 23.1
--- NOTE | 2021-08-14 09:20 | W.ED.FEMALGU ---
HPI - Female Genitourinary General: Chief complaint: Urogenital-Female Stated complaint: painful urination Time Seen by Provider: 08/14/21 09:05 Source: patient Mode of arrival: ambulatory Limitations: no limitations History of Present Illness: 71-year-old male presents to the emergency room with complaint of dysuria urgency frequency began 2 days ago no fever sweats or chills. MD elicited complaint: dysuria and UTI Onset (ago): day(s) (2) Severity: mild Urinary symptoms: Dysuria, Frequency and Hematuria Exacerbating factors: none Relieving factors: none Associated symptoms: Deny abdominal pain, short of breath, fevers/chills, headache(s), nausea, rash, seizures, syncope, vaginal bleeding, vaginal discharge or weakness Treatment prior to arrival: none Review of Systems Const: Denies: fever(s), chills, body aches, change in appetite, fatigue or malaise ENMT: Denies: throat pain, ear or mastoid pain, nasal discharge or nasal congestion Card: Denies: chest pain or syncope Resp: Denies: dyspnea, productive cough or non-productive cough GI: Denies: abdominal pain, nausea or vomiting : Reports: difficulty voiding, dysuria and urinary frequency; Denies: flank pain or vaginal discharge Skin/Breast: Denies: rash or pruritus Neuro: Denies: headache(s) PFS ED PFSH: Medical History Acute appendicitis Condition resolved Diverticulosis Hemorrhoids Tremor Surgical History History of arthroscopic knee surgery bilateral knee by Dr. Bowers History of hysterectomy 2016 Social History Alcohol intake: current Alcohol intake frequency: holidays/special occasions only Alcohol type: wine Physical Exam Const: COMMON NORMALS: no acute distress GENERAL APPEARANCE: cooperative and comfortable ORIENTATION/CONSCIOUSNESS: Yes awake, Yes oriented to person, Yes oriented to place and Yes oriented to time HENMT: COMMON NORMALS: normocephalic, atraumatic and hearing grossly normal bilaterally HEAD & SCALP: normocephalic and atraumatic Neck/C-Spine: COMMON NORMALS: no JVD Resp: COMMON NORMALS: normal respiratory effort, No retractions, No use of accessory muscles and clear to auscultation bilaterally AUSCULTATION: clear to auscultation bilaterally Cardio: COMMON NORMALS: no JVD, regular rate, regular rhythm and No murmurs present (Cardio) RATE: regular rate RHYTHM: regular rhythm GI: COMMON NORMALS: Soft to palpation and No hepatosplenomegaly present AUSCULTATION: Yes normoactive bowel sounds PALPATION: Yes Soft to palpation, No Tenderness to palpation present (GI), No Guarding due to palpation present (GI) and Yes No hepatosplenomegaly present : COMMON NORMALS: Yes no CVA tenderness BLADDER/KIDNEY EXAM: Yes no CVA tenderness SPECULUM EXAM - VAGINA: No vaginal bleeding OB/EXTERNAL & SPECULUM: No vaginal bleeding Back/Pelvis: COMMON NORMALS: no CVA tenderness Extremity: COMMON NORMALS: normal to inspection, capillary refill normal, no clubbing, cyanosis or edema, no calf tenderness and no pedal edema Neuro: SENSORIUM/ORIENTATION: Yes oriented to person, Yes oriented to place and Yes oriented to time Skin: COMMON NORMALS: no rashes or lesions noted GENERAL SKIN EXAM: no rashes or lesions noted Course Vital Signs: Vital signs: Vital Signs Temperature 98.3 F 08/14/21 09:04 Pulse Rate 60 08/14/21 10:09 Respiratory Rate 16 08/14/21 09:04 Blood Pressure 101/59 08/14/21 10:09 Pulse Oximetry 94 08/14/21 10:09 MDM - Female Medical Decision Making UTI start oral antibiotics follow-up with primary care. Medical Records I reviewed the patient's medical records. Lab Data I reviewed the patient's lab results. Laboratory Results Urine Color Straw (Yellow) 08/14/21 09:10 Urine Appearance Turbid (CLEAR) 08/14/21 09:10 Urine pH 5 (5-7) 08/14/21 09:10 Ur Specific [place] 1.020 (1.005-1.030) 08/14/21 09:10 Urine Protein 3+ (Negative) H 08/14/21 09:10 Urine Glucose (UA) Norm (Normal) 08/14/21 09:10 Urine Ketones Negative (Negative) 08/14/21 09:10 Urine Blood 3+ (Negative) H 08/14/21 09:10 Urine Nitrate Positive (Negative) H 08/14/21 09:10 Urine Bilirubin Neg (Negative) 08/14/21 09:10 Urine Urobilinogen Norm mg/dL (Negative) 08/14/21 09:10 Ur Leukocyte Esterase 2+ (Negative) H 08/14/21 09:10 Urine RBC /hpf (0-2) 08/14/21 09:10 Urine WBC Not Reportable 08/14/21 09:10 Ur Squamous Epith Cells Not Reportable 08/14/21 09:10 Amorphous Sediment Not Reportable 08/14/21 09:10 Urine Bacteria Not Reportable 08/14/21 09:10 Discharge Plan Discharge Patient Disposition: Home Clinical Impression: Urinary tract infection Condition: Stable Prescriptions: New Macrobid 100 mg capsule 100 mg PO BID 7 Days Qty: 14 0RF Rx Instructions: must administer with a meal/food No Action naproxen 500 mg tablet 500 mg PO BID PRN (Reason: Pain) 0RF Hold Instructions: Resume on 04/14/20. nitrofurantoin monohyd/m-cryst [Macrobid] 100 mg capsule 100 mg PO BID 5 Days Qty: 10 0RF Rx Instructions: must administer with a meal/food diazepam 5 mg tablet 5 mg PO BID 0RF hydrocodone-acetaminophen 5-325 mg tablet 1 tab PO Q6H PRN (Reason: pain) Qty: 28 0RF propranolol 40 mg tablet 80 mg PO BID 0RF Discharge Orders: Discharge ED (Routine); Ordered 08/14/21 Ordered By: Stephan Teixeiar Referrals: [place] MD [Primary Care Provider] - Discharge Diet: Usual diet Discharge Activity: Increase activity as tolerated Patient Instructions: Urinary Tract Infection in Women (ED), Opioid Safety Activity Restrictions/Additional Instructions: Follow-up with your primary care doctor or principal automation engineer. Return if you develop fever or worsening symptoms. Coding Level of Care Code ED Traffic Signal Technician for Chg Fwd Exam Problem Focused
[2021-08-14 09:29] LABS: Charge for UA Resulting for Rev
[2021-08-14 09:34] LABS: Blood Urine 3+ (Negative); Glucose Urine UA Norm (Normal); Ketones Urine Negative (Negative); Nitrate Urine Positive (Negative); Protein Urine 3+ (Negative); Urine Appearance Turbid (CLEAR); Urine Color Straw (Yellow); pH Urine 5 (5-7)
[2021-08-14 09:35] LABS: Add Urine Microscopic? YES; Bilirubin Urine Neg (Negative); Leukocyte Esterase Urine 2+ (Negative); Urobilinogen Urine Norm (Negative)
[2021-08-14 09:37] LABS: Add Urine Culture? Yes
[2021-08-14 10:00] VITALS: BP 101/59; PULSE 60; O2SAT 94
[2021-08-14 10:09] VITALS: BP 101/59; PULSE 60; O2SAT 94
== END 2021-08-14 10:08 | disposition home or self-care (01) ==
PROVIDERS: Emergency Provider Family Medicine; PCP Family Medicine
DX: N39.0 Urinary tract infection, site not specified (principal)
CPT/HCPCS: 81001; 81003; 87077; 87086; 87186; 99283

== ENCOUNTER → 2021-09-06 10:08 | Outpatient (BNVA) | payer MEDICARE, OTHER, SELFPAY | PROVIDERS: PCP Family Medicine; Visit Provider Obstetrics & Gynecology | DX: R33.9 Retention of urine, unspecified (principal) | CPT/HCPCS: 81000 ==

== ENCOUNTER → 2021-10-31 15:56 | Outpatient (BNVA) | payer MEDICARE, OTHER, SELFPAY | PROVIDERS: PCP Family Medicine; Visit Provider Family Medicine | DX: Z09 Encounter for follow-up examination after completed treatment for conditions other than malignant neoplasm (principal); M17.0 Bilateral primary osteoarthritis of knee; Z51.81 Encounter for therapeutic drug level monitoring | CPT/HCPCS: 80048 ==

== ENCOUNTER 2021-11-17 12:00 | Outpatient (CLI) | payer MEDICARE, OTHER, SELFPAY ==
--- NOTE | 2021-11-17 12:08 | MM_ITS ---
WS: [id number] BILATERAL SCREENING DIGITAL TOMOSYNTHESIS MAMMOGRAM WITH CAD HISTORY: SCREENING COMPARISON: 12/11/2018 and 11/15/2015 Bilateral CC and MLO views with tomosynthesis and synthetic mammography submitted. Computer aided det ection analyzed. Breast composition: The breasts are heterogeneously dense, which may obscure small masses. No suspici ous masses, microcalcifications or architectural distortion. MM/[place] [id number] IMPRESSION: BI-RADS: 2-Benign FOLLOW UP: 1 Year Follow-up
== END 2021-11-17 12:01 | disposition home or self-care (01) ==
LOC: RAD 12:03
PROVIDERS: PCP Family Medicine; Visit Provider Family Medicine
DX: Z12.31 Encounter for screening mammogram for malignant neoplasm of breast (principal)
CPT/HCPCS: 77063; 77067

== ENCOUNTER 2022-03-20 15:23 | Emergency (ER) | payer MEDICARE, OTHER, SELFPAY ==
[2022-03-20 16:05] VITALS: BP 103/65; PULSE 72; RESP 16; TEMP 36.5; O2SAT 93; BMI 22.8
--- NOTE | 2022-03-20 16:53 | XRR_ITS ---
PROCEDURE INFORMATION: Exam: XR Right Hand Exam date and time: 03/20/2022 5:08 PM Age: 71 years old Clinical indication: Injury or trauma; Fall; Blunt trauma (contusions or hematomas); Hand; Right; Additional info: Injury/fall TECHNIQUE: Imaging protocol: Radiologic exam of the Right hand. Views: 3 or more views. COMPARISON: No relevant prior studies available. FINDINGS: Bones/joints: No fracture or dislocation is seen about the right hand. Mild degenerative change. A fracture seen within the distal right radius at the wrist, particularly on the oblique view, for further evaluation with wrist exam. Soft tissues: Unremarkable. XR/XR hand RT min 3V* [id number] IMPRESSION: 1. No fracture is seen about the right hand, with mild degenerative change. 2. Fracture is seen about the distal right radius at the wrist on the oblique view, for further evaluation with wrist exam.
--- NOTE | 2022-03-20 16:53 | XRR_ITS ---
PROCEDURE INFORMATION: Exam: XR Right Wrist Exam date and time: 03/20/2022 5:10 PM Age: 71 years old Clinical indication: Injury or trauma; Fall; Blunt trauma (contusions or hematomas); Wrist; Right; Additional info: Fall/injury TECHNIQUE: Imaging protocol: Radiologic exam of the Right wrist. Views: 3 or more views. COMPARISON: CR XR hand RT min 3V* [id number] 03/20/2022 5:08 PM FINDINGS: Bones/joints: A fracture with mixed transverse and vertical or oblique component is seen about the distal right radius at the wrist, best visualized in the oblique projection with vertical line extending to the articular surface toward the ulnar side. There is no significant displacement or angulation or impaction. No other fracture is seen about the right wrist. Mild degenerative change, particularly along the thumb side. Soft tissues: Unremarkable. XR/XR wrist RT min 3V* [id number] IMPRESSION: Nondisplaced fracture involving the distal metaphysis of the right radius at the wrist with a vertical component extending to the articular surface along the ulnar side, as seen best on the oblique view.
--- NOTE | 2022-03-20 17:41 | W.ED.EXTPRO ---
Documented by User: BRYAN Evans 03/21/22 01:55 HPI - Extremity Problem General: Chief complaint: Extremity Injury, Upper Stated complaint: Right hand Injury/Fall Time Seen by Provider: 03/20/22 17:06 History of Present Illness: Patient is in today because she fell playing a sport this morning onto her outstretched right hand. She has pain at the wrist radial side. She has some swelling. She denies hitting her head during the fall. She denies loss of consciousness or injury anywhere else. Associated symptoms: Deny chest pain or fever(s) Review of Systems Const: Denies: fever(s) or chills Card: Denies: chest pain or palpitations Resp: Denies: dyspnea, productive cough or non-productive cough Musc: Reports: extremity pain and joint pain PFSH ED PFSH: Medical History Acute appendicitis Condition resolved Diverticulosis Hemorrhoids Osteoarthritis of knees, bilateral Tremor Surgical History History of appendectomy History of arthroscopic knee surgery bilateral knee by Dr. Bowers History of hemorrhoidectomy History of hysterectomy 2016 Family History Grandfather Hypertension Maternal Father Cancer lung Mother Hypertension Thyroid disease Denies family history of Diabetes CAD (coronary artery disease) Hyperlipidemia Chronic kidney disease (CKD) Bleeding disorder Stroke Physical Exam Const: COMMON NORMALS: no acute distress, patient oriented x3 and alert Resp: COMMON NORMALS: normal respiratory effort and No use of accessory muscles Extremity: NARRATIVE EXTREMITY EXAM: There is tenderness to palpation to the dorsal hand and the radial wrist. There is some swelling noted in the area of the distal radius. No obvious bony deformity. Patient is able to flex and extend all digits. Color and sensation are within normal limits. Radial and ulnar pulses are intact. Neuro: COMMON NORMALS: patient oriented x3 SENSORIUM/ORIENTATION: Yes alert Course Vital Signs: Vital signs: Vital Signs Temperature 97.7 F 03/20/22 16:05 Pulse Rate 72 03/20/22 16:05 Respiratory Rate 16 03/20/22 16:05 Blood Pressure 103/65 03/20/22 16:05 Pulse Oximetry 93 03/20/22 16:05 Oxygen Delivery Ia thod 03/20/22 16:05 MDM - Extremity (Nontraumatic) Medical Decision Making Differentials include fracture of the wrist, fracture of the hand, strain/sprain wrist X-ray 3 view hand wet read no acute osseous deformities appreciated 3 view wrist wet read: Concern for fracture distal radius Radiologist report hand x-ray no acute osseous deformities. Radiologist report wrist x-ray nondisplaced fracture involving the distal metaphysis of the right radius at the wrist with a vertical component extending to the articular surface along the ulnar side. Place patient in sugar-tong splint. Refer to orthopedics. Advised her of conservative treatments at home including ice, rest, elevation of the extremity. Follow-up with orthopedics as directed. Follow-up with primary care provider as needed. Return to the ER for new or worsening symptoms patient verbalizes agreement with plan of care. 1 dose of pain medications provided to patient here however she is going to take that as soon as she arrives at her house because she has to drive herself home. Advised her not to drive after taking the medication. Lab Data Radiology Impressions Hand X-Ray 03/20/22 16:53 IMPRESSION: 1. No fracture is seen about the right hand, with mild degenerative change. 2. Fracture is seen about the distal right radius at the wrist on the oblique view, for further evaluation with wrist exam. Wrist X-Ray 03/20/22 16:53 IMPRESSION: Nondisplaced fracture involving the distal metaphysis of the right radius at the wrist with a vertical component extending to the articular surface along the ulnar side, as seen best on the oblique view. Discharge Plan Discharge Patient Disposition: Home Clinical Impression: Fracture of distal end of right radius Qualifiers: Encounter type: initial encounter Fracture type: closed Fracture morphology: other intra-articular Qualified Code(s): S52.571A - Other intraarticular fracture of lower end of right radius, initial encounter for closed fracture Condition: Stable Prescriptions: No Action diclofenac sodium 75 mg tablet,delayed release (DR/EC) 75 mg PO BID loratadine [Claritin] 10 mg tablet 10 mg PO DAILY diazepam 5 mg tablet 5 mg PO BID Qty: 60 5RF conjugated estrogens 0.625 mg/gram cream 0.3125 mg vaginal DAILY Qty: 42.5 0RF Rx Instructions: daily for 14 days, then 2 times weekly propranolol 40 mg tablet See Rx Instructions .ROUTE .COMPLEX Qty: 240 3RF Dose Instruction: TAKE ONE AND ONE-HALF TABLETS TWICE A DAY Rx Instructions: TAKE ONE AND ONE-HALF TABLETS TWICE A DAY Discharge Orders: Discharge ED (Routine); Ordered 03/20/22 Ordered By: Amy Collins Referrals: Lake Vela MD [Primary Care Provider] - Discharge Diet: Usual diet Discharge Activity: Limit activity as instructed Patient Instructions: Splint/Cast Care Activity Restrictions/Additional Instructions: Keep the splint clean and dry. You may take the 1 hydrocodone when you arrive home since she did not have a emergency detail driver the ER today. Do not drive after taking this medication. Follow-up with orthopedics. Ice, elevate, rest the extremity. Return to the ER for any new or worsening symptoms Coding Level of Care Code ED [facility] Vat Worker for Chg Fwd Documented by User: Stephan Teixeira DO 03/21/22 06:08 HPI - Extremity Problem General: Chief complaint: Extremity Injury, Upper Stated complaint: Right hand Injury/Fall Time Seen by Provider: 03/20/22 17:06 [facility] ED PFSH: Medical History Acute appendicitis Condition resolved Diverticulosis Hemorrhoids Osteoarthritis of knees, bilateral Tremor Surgical History History of appendectomy History of arthroscopic knee surgery bilateral knee by Dr. Bowers History of hemorrhoidectomy History of hysterectomy 2016 Family History Grandfather Hypertension Maternal Father Cancer lung Mother Hypertension Thyroid disease Denies family history of Diabetes CAD (coronary artery disease) Hyperlipidemia Chronic kidney disease (CKD) Bleeding disorder Stroke Course Vital Signs: Vital signs: Vital Signs Temperature 97.7 F 03/20/22 16:05 Pulse Rate 72 03/20/22 16:05 Respiratory Rate 16 03/20/22 16:05 Blood Pressure 103/65 03/20/22 16:05 Pulse Oximetry 93 03/20/22 16:05 Oxygen Delivery Me thod 03/20/22 16:05 MDM - Extremity (Nontraumatic) Medical Decision Making Differentials include fracture of the wrist, fracture of the hand, strain/sprain wrist X-ray 3 view hand wet read no acute osseous deformities appreciated 3 view wrist wet read: Concern for fracture distal radius Radiologist report hand x-ray no acute osseous deformities. Radiologist report wrist x-ray nondisplaced fracture involving the distal metaphysis of the right radius at the wrist with a vertical component extending to the articular surface along the ulnar side. Place patient in sugar-tong splint. Refer to orthopedics. Advised her of conservative treatments at home including ice, rest, elevation of the extremity. Follow-up with orthopedics as directed. Follow-up with primary care provider as needed. Return to the ER for new or worsening symptoms patient verbalizes agreement with plan of care. 1 dose of pain medications provided to patient here however she is going to take that as soon as she arrives at her house because she has to drive herself home. Advised her not to drive after taking the medication. Chart reviewed and patient discussed with midlevel. Agree with assessment and plan. Lab Data Radiology Impressions Hand X-Ray 03/20/22 16:53 IMPRESSION: 1. No fracture is seen about the right hand, with mild degenerative change. 2. Fracture is seen about the distal right radius at the wrist on the oblique view, for further evaluation with wrist exam. Wrist X-Ray 03/20/22 16:53 IMPRESSION: Nondisplaced fracture involving the distal metaphysis of the right radius at the wrist with a vertical component extending to the articular surface along the ulnar side, as seen best on the oblique view. Discharge Plan Discharge Patient Disposition: Home Clinical Impression: Fracture of distal end of right radius Qualifiers: Encounter type: initial encounter Fracture type: closed Fracture morphology: other intra-articular Qualified Code(s): S52.571A - Other intraarticular fracture of lower end of right radius, initial encounter for closed fracture Condition: Stable Prescriptions: No Action diclofenac sodium 75 mg tablet,delayed release (DR/EC) 75 mg PO BID loratadine [Claritin] 10 mg tablet 10 mg PO DAILY diazepam 5 mg tablet 5 mg PO BID Qty: 60 5RF conjugated estrogens 0.625 mg/gram cream 0.3125 mg vaginal DAILY Qty: 42.5 0RF Rx Instructions: daily for 14 days, then 2 times weekly propranolol 40 mg tablet See Rx Instructions .ROUTE .COMPLEX Qty: 240 3RF Dose Instruction: TAKE ONE AND ONE-HALF TABLETS TWICE A DAY Rx Instructions: TAKE ONE AND ONE-HALF TABLETS TWICE A DAY Discharge Orders: Discharge ED (Routine); Ordered 03/20/22 Ordered By: Amy Collins Referrals: Lake Vela MD [Primary Care Provider] - Discharge Diet: Usual diet Discharge Activity: Limit activity as instructed Patient Instructions: Splint/Cast Care Activity Restrictions/Additional Instructions: Keep the splint clean and dry. You may take the 1 hydrocodone when you arrive home since she did not have a emergency detail driver the ER today. Do not drive after taking this medication. Follow-up with orthopedics. Ice, elevate, rest the extremity. Return to the ER for any new or worsening symptoms Coding Level of Care Code ED [facility] Vat Worker for Oscar Chatterjee
--- NOTE | 2022-03-21 11:04 | DCPLANNER ---
Addendum entered by Samaria Whyte 04/11/22 08:02: Patient had a follow up appointment scheduled with ortho - patient did attend appointment. Addendum entered by Samaria Whyte 03/23/22 13:34: Patient has a follow up appointment scheduled for Sunday, March 27, [address]22 at 2:[address] Chavez at ortho. Clinic will call patient with appointment information. Original Note: pit manager had message to schedule a follow up appointment for patient with ortho. pit manager had message to schedule a follow up appointment for patient with ortho. Patients information will be printed and reviewed. Clinic will call patient with appointment information.
== END 2022-03-20 18:29 | disposition home or self-care (01) ==
PROVIDERS: Emergency Provider Nurse Practitioner Family; PCP Family Medicine
DX: S52.571A Other intraarticular fracture of lower end of right radius, initial encounter for closed fracture (principal); W18.39XA Other fall on same level, initial encounter; Y93.79 Activity, other specified sports and athletics
CPT/HCPCS: 73110; 73130; 99283

== ENCOUNTER → 2022-03-27 15:06 | Outpatient (BNVA) | payer MEDICARE, OTHER, SELFPAY | PROVIDERS: PCP Family Medicine; Referring Provider Nurse Practitioner Family; Visit Provider Orthopaedic Surgery | DX: S52.571A Other intraarticular fracture of lower end of right radius, initial encounter for closed fracture (principal); S52.502A Unspecified fracture of the lower end of left radius, initial encounter for closed fracture; W18.30XA Fall on same level, unspecified, initial encounter; Y93.73 Activity, racquet and hand sports | CPT/HCPCS: 73110 ==

== ENCOUNTER 2022-03-27 17:20 | Outpatient (CLI) | payer MEDICARE, OTHER, SELFPAY | END 2022-03-27 17:21 | disposition home or self-care (01) | LOC: SPT 17:22 | PROVIDERS: PCP Family Medicine; Visit Provider Orthopaedic Surgery | DX: Z46.89 Encounter for fitting and adjustment of other specified devices (principal); S52.592D Other fractures of lower end of left radius, subsequent encounter for closed fracture with routine healing; S52.591D Other fractures of lower end of right radius, subsequent encounter for closed fracture with routine healing; X58.XXXD Exposure to other specified factors, subsequent encounter | CPT/HCPCS: 25600; 97760; L3908; L3982 ==

== ENCOUNTER → 2022-04-17 11:12 | Outpatient (BNVA) | payer MEDICARE, OTHER, SELFPAY | PROVIDERS: PCP Family Medicine; Visit Provider Orthopaedic Surgery | DX: S52.502D Unspecified fracture of the lower end of left radius, subsequent encounter for closed fracture with routine healing (principal); S52.571D Other intraarticular fracture of lower end of right radius, subsequent encounter for closed fracture with routine healing; X58.XXXD Exposure to other specified factors, subsequent encounter | CPT/HCPCS: 73110; 99024 ==

== ENCOUNTER → 2022-05-08 10:07 | Outpatient (BNVA) | payer MEDICARE, OTHER, SELFPAY | PROVIDERS: PCP Family Medicine; Visit Provider Orthopaedic Surgery | DX: S52.502D Unspecified fracture of the lower end of left radius, subsequent encounter for closed fracture with routine healing (principal); S52.571D Other intraarticular fracture of lower end of right radius, subsequent encounter for closed fracture with routine healing; X58.XXXD Exposure to other specified factors, subsequent encounter | CPT/HCPCS: 73110; 99024 ==

== ENCOUNTER → 2022-05-25 08:04 | Outpatient (BNVA) | payer MEDICARE, OTHER, SELFPAY | PROVIDERS: PCP Family Medicine; Visit Provider Family Medicine | DX: G25.2 Other specified forms of tremor (principal); Z13.6 Encounter for screening for cardiovascular disorders | CPT/HCPCS: 80053; 80061; 85025 ==

== ENCOUNTER → 2022-06-06 09:06 | Outpatient (BNVA) | payer MEDICARE, OTHER, SELFPAY | PROVIDERS: PCP Family Medicine; Visit Provider Orthopaedic Surgery | DX: M16.11 Unilateral primary osteoarthritis, right hip (principal) | CPT/HCPCS: 73502; 99213 ==

== ENCOUNTER 2022-06-07 14:29 | Outpatient (CLI) | payer MEDICARE, OTHER, SELFPAY ==
--- NOTE | 2022-06-07 15:00 | XR_ITS ---
WS: [id number] SCREENING DEXA SCAN Envia Lá CLINICAL INFORMATION: screening COMPARISON: None. FINDINGS: The L1-L4 bone mineral density measures 1.071 g/cm2. This corresponds to a T score score of -0.9 and Z score of 0.7. Left femoral neck bone mineral density measures 0.801 g/cm2. This corresponds to a T score of -1.6 an d Z score of -0.2. Right femoral neck bone mineral density measures 0.755 g/cm2. This corresponds to a T score -2.0of an d Z score of -0.6. Mean femoral neck bone mineral density measures 0.778 g/cm2. This corresponds to a T score of -1.8 an d Z score of -0.4. XR/XR DEXA axial skeleton* 13072 IMPRESSION: Normal bone mineralization lumbar spine approaching osteopenia. Osteopenia femo ral necks. Patient's FRAX calculated 10 year probability for major osteoporotic fracture i s 18.2 % and osteoporotic hip fracture is 3.6%.
== END 2022-06-07 14:30 | disposition home or self-care (01) ==
LOC: RAD 14:33
PROVIDERS: PCP Family Medicine; Visit Provider Family Medicine
DX: Z13.820 Encounter for screening for osteoporosis (principal)
CPT/HCPCS: 77080

== ENCOUNTER 2022-07-23 08:57 | Outpatient (CLI) | payer MEDICARE, OTHER, SELFPAY | END 2022-07-23 08:58 | disposition home or self-care (01) | LOC: RT 07-26 08:59 | PROVIDERS: PCP Family Medicine; Visit Provider Orthopaedic Surgery | DX: Z01.810 Encounter for preprocedural cardiovascular examination (principal) | CPT/HCPCS: 80053; 81003; 85025; 93005 ==

== ENCOUNTER 2022-07-30 09:49 | Observation (INO) | payer MEDICARE, OTHER, SELFPAY ==
--- NOTE | 2022-07-23 10:10 | ECG_ITS ---
[facility] Test Date: 2022-07-23 Pat Name: Jade Hugo Department: Room: Gender: Female Branch Rental Manager: : 1950 Requested By: Harry Ayala Order Number: [id number] Mayi MD: Liliana Chávez M.D. Measurements Intervals [place] Rate: 73 P: 65 VA: 172 QRS: 41 QRSD: 86 T: 40 QT: 357 QTc: 394 Interpretive Statements SINUS RHYTHM POSSIBLE LEFT ATRIAL ENLARGEMENT [-0.1mV P-WAVE IN V1/V2] No previous ECG available for comparison Electronically Signed On 07-23-2022 11:09:40 CDT by Liliana Chávez M.D. [id number]
[2022-07-23 10:35] VITALS: BMI 23.1
[2022-07-23 10:36] LABS: Add Urine Microscopic? NO; Charge for UA Resulting for Rev
[2022-07-23 10:45] LABS: Basophils # 0.1 10^3/uL (0.0-0.1); Basophils % 1.1 %; Eosinophils # 0.3 10^3/uL (0.0-0.8); Eosinophils % 4.8 %; Hematocrit 42.9 % (37.0-47.0); Lymphocytes # 1.8 10^3/uL (0.8-4.8); Lymphocytes % 31.7 %; Mean Corpuscular HGB Conc 32.6 g/dL (30.0-36.0); Mean Corpuscular Hemoglobin 28.9 pg (28.0-34.0); Mean Corpuscular Volume 88.5 fl (81-99); Mean Platelet Volume 11.2 fL (7.4-10.4); Monocytes # 0.6 10^3/uL (0.2-0.9); Monocytes % 10.5 %; Neutrophils # 2.91 10^3/uL (1.8-7.7); Neutrophils % 51.7 %; Nucleated Red Blood Cells % 0 %; Platelet Count 238 10^3/cmm (130-400); Red Blood Count 4.85 10^6/uL (4.1-5.3); Red Cell Distribution Width 12.5 % (12.1-15.1); White Blood Count 5.6 10^3/uL (4.0-10.0)
[2022-07-23 11:00] LABS: Alanine Aminotransferase 11 U/L (0-33); Albumin Level 4.3 g/dL (3.5-5.2); Alkaline Phosphatase 71 U/L (35-105); Anion Gap 11.2 (5-19); Aspartate Amino Transferase 20 U/L (0-32); Blood Urea Nitrogen 17 mg/dL (8-23); Calcium 9.2 mg/dL (8.5-10.5); Carbon Dioxide 28 mmol/L (22-29); Chloride 102 mmol/L (98-107); Globulin 2.4 g/dL (1.3-4.6); Glomerular Filtration Rate 98.8 mL/min (90-130); Glucose 86 mg/dL (65-115); Osmolality Calculated 285 mOsm/kg (285-295); Potassium 4.2 mmol/L (3.5-5.1); Sodium 137 mmol/L (136-145); Total Bilirubin 0.2 mg/dL (0.15-1.2); Total Protein 6.7 g/dL (6.6-8.7)
[2022-07-23 11:02] LABS: Bilirubin Urine Neg (Negative); Blood Urine Neg (Negative); Glucose Urine UA Norm (Normal); Ketones Urine Negative (Negative); Leukocyte Esterase Urine Negative (Negative); Nitrate Urine Negative (Negative); Protein Urine Neg (Negative); Specific Gravity, Urine 1.015 (1.005-1.030); Urine Appearance Clear (CLEAR); Urine Color Yellow (Yellow); Urobilinogen Urine Norm (Negative); pH Urine 5 (5-7)
--- NOTE | 2022-07-23 14:17 | P.ANESASSM_ITS ---
Pre-Anesthetic Assessment Height/Weight: Height 1.7 m Weight 67.132 kg Operation Date: 07/30/22 07:00 Proposed Procedures p right total hip arthroplasty/ 29323,M16.11(Right) - Silvestre Chavez MD Familial anesthetic complications: none Was Beta Valentina taken within 24 hours: N/A Was Clonidine taken within 24 hours: N/A Social No alcohol and No tobacco Exam alert, oriented x 3, clear to auscultation bilaterally and regular rate & rhythm Airway Submandibular: within normal limits Cervical ROM: within normal limits Mallampati: Class II Dentition: full Metabolic Hyperlipidemia [facility] Osteoarthritis/DJD Neuropsych Tremor Anesthetic Plan ASA status: 2 Anesthesia: Regional (specify below) (SAB) Medications/Allergies Home Medications Medication Instructions Recorded Confirmed Last Taken Type conjugated estrogens 0.625 mg/gram 0.3125 mg vaginal DAILY #42.5 grams 09/07/21 07/23/22 Unknown Rx vaginal cream cock up splint #1 ea 03/27/22 06/06/22 Unknown Rx fast form cock up splint #1 ea 03/27/22 06/06/22 Unknown Rx naproxen 500 mg tablet,delayed 500 mg PO BID #180 tabs 05/24/22 07/23/22 07/23/22 Rx release atorvastatin 10 mg tablet 10 mg PO DAILY #90 tabs 06/06/22 07/23/22 Unknown Rx multivitamin 1 tab PO DAILY 07/23/22 07/23/22 07/23/22 History Allergies Allergy/AdvReac Type Severity Reaction Status Date / Time celecoxib [From Celebrex] Allergy Intermediate rash Verified 07/23/22 10:30 sulfa Allergy ALGY-Rash Uncoded 07/23/22 10:30 [facility] Anesthesia Medical History Acute appendicitis Condition resolved Diverticulosis 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 Not sure of cause. Dr. Joya at [facility] Hemorrhoids Osteoarthritis of knees, bilateral Tremor Surgical History History of appendectomy History of arthroscopic knee surgery bilateral knee by Dr. Bowers History of hemorrhoidectomy History of hysterectomy 2016 Family History Grandfather Hypertension Maternal Father Cancer lung Mother Hypertension Thyroid disease Denies family history of Diabetes CAD (coronary artery disease) Hyperlipidemia Chronic kidney disease (CKD) Bleeding disorder Stroke Social History Substance/Drug Use: never Data Anesthesia 07/23/22 10:30 07/23/22 10:15 Short CBC 07/23/22 Range/Units 10:30 WBC 5.6 (4.0-10.0) 10^3/uL Hgb 14.0 (11.5-15.3) g/dL Hct 42.9 (37.0-47.0) % MCV 88.5 (81-99) fl Plt Count 238 (130-400) 10^3/cmm Neut % (Auto) 51.7 % Neut # (Auto) 2.91 (1.8-7.7) 10^3/uL BMP 07/23/22 10:15 Sodium 137 Potassium 4.2 Chloride 102 Carbon Dioxide 28 BUN 17 Creatinine 0.6 Glucose 86 Calcium 9.2 Liver Function 07/23/22 Range/Units 10:15 Total Bilirubin 0.2 (0.15-1.2) mg/dL AST 20 (0-32) U/L ALT 11 (0-33) U/L Alkaline Phosphatase 71 (35-105) U/L Albumin 4.3 (3.5-5.2) g/dL Urine 07/23/22 Range/Units 10:15 Urine Color Yellow (Yellow) Urine Appearance Clear (CLEAR) Urine pH 5 (5-7) Ur Specific Soper 1.015 (1.005-1.030) Urine Protein Neg (Negative) Urine Glucose (UA) Norm (Normal) Urine Ketones Negative (Negative) Urine Nitrate Negative (Negative) Urine Bilirubin Neg (Negative) Ur Leukocyte Esterase Negative (Negative) Cardiac Studies: No Data to Display
[2022-07-30] VITALS (24 sets, daily range): BP systolic 97–132; BP diastolic 45–72; PULSE 62–95; RESP 16–20; TEMP 36.1–36.7; O2SAT 94–100
[2022-07-30] MEDS: sodium chloride 0.9% 1,000 ML 30 ML IV (06:27)
[2022-07-30] MEDS: oxyCODONE 20 mg ER (12 HR) Tablet PO (06:28)
[2022-07-30] MEDS: acetaminophen 500 mg Tablet 1000 MG PO ×3 (06:28→22:19)
[2022-07-30] MEDS: gabapentin 300 mg Capsule PO (06:28)
[2022-07-30] MEDS: ceFAZolin 2,000 MG in sodium chloride 0.9% (plus) 50 ML 100 MG IV ×3 (07:03→22:17)
--- NOTE | 2022-07-30 07:03 | P.HP_ITS ---
Same Day Surgery H&P Indication for Procedure/HPI DATE OF PROCEDURE: July 30, 2022 CHIEF COMPLAINT/INDICATIONFOR SURGICAL PROCEDURE: Osteoarthritis right hip here for right total hip arthroplasty PREOP DIAGNOSIS: Osteoarthritis right hip PLANNED PROCEDURE: Operation Date: 07/30/22 07:00 Proposed Procedures p right total hip arthroplasty/ 28961,M16.11(Right) - Silvestre Chavez MD 71-year-old female with years of hip pain. Pain is worse with walking and standing. She has difficulty ambulating stairs. She has pain at night. She has failed therapy and anti-inflammatories. Here for total hip arthroplasty Medications/Allergies* Home Medications Medication Instructions Recorded Confirmed Type multivitamin 1 tab PO DAILY 07/23/22 07/30/22 History Allergies/Adverse Reactions Allergy/AdvReac Type Severity Reaction Status Date / Time celecoxib [From Celebrex] Allergy Intermediate rash Verified 07/23/22 10:30 sulfa Allergy ALGY-Rash Uncoded 07/23/22 10:30 Current Medications: Generic Name Dose Route Start Last Admin Trade Name Freq PRN Reason Stop Dose Admin Sodium Chloride 1,000 mls @ 30 mls/hr 07/30/22 06:15 07/30/22 06:27 Sodium Chloride 0.9% IV 07/31/22 06:14 30 mls/hr .Q24H EZRA Administration Pertinent History/Comorbid Conditions* Medical History (Updated 05/24/22 @ 12:10 by Lake Vela MD) Acute appendicitis Condition resolved Diverticulosis 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 Not sure of cause. Dr. Joya at [facility] Hemorrhoids Osteoarthritis of knees, bilateral Tremor Surgical History (Updated 09/07/21 @ 09:10 by Danielle Dallas MD) History of appendectomy History of arthroscopic knee surgery bilateral knee by Dr. Bowers History of hemorrhoidectomy History of hysterectomy 2016 Family History (Updated 09/06/21 @ 09:37 by Ernestina Porter LPN) Cancer Father lung Hypertension Grandfather Maternal Mother Thyroid disease Mother Denies family history of Diabetes CAD (coronary artery disease) Hyperlipidemia Chronic kidney disease (CKD) Bleeding disorder Stroke Social History Substance/Drug Use: never Pertinent Exam Findings alert, oriented x 3, clear to auscultation bilaterally and operative site marked No tenderness right hip Right hip can be flexed to 90 and externally rotated 40. She can internally rotate to neutral. Pain with extremes of motion MOTOR: Strong quadriceps hamstrings tibialis anterior and extensor houses longus strength SENSATION: Intact to light touch Pertinent Data Radiographs of the right hip are reviewed dated 06/06/2022. She has severe d egenerative changes of the right hip Recommendations Surgery/Procedure today Coding Level of Care Code Acute Code for Chg Fwd Diagnoses
[2022-07-30] MEDS: tranexamic acid 1,000 mg/10mL SDV 1000 MG IV (07:45)
[2022-07-30] MEDS: sodium chloride 0.9% (100 ml) 100 ML IV (07:58)
--- NOTE | 2022-07-30 08:22 | P.ANESUD_ITS ---
Pre-Anesthetic Update Pre-Anesthetic Assessment: Date of Surgery/Procedure: 07/30/22 Preop Yolanda gnosis: Osteoarthritis right hip Proposed Procedure: Operation Date: 07/30/22 07:00 Proposed Procedures p right total hip arthroplasty/ 14524,M16.11(Right) - Silvestre Chavez MD Any changes to Pre-Anesthetic Assessment?: No Last Intake: Intake Last Liquid Date 07/30/22 Last Liquid Time 04:30 Last Solid Date 07/29/22 Last Solid Time 19:30 Vitals: Temperature 97 F L 07/30/22 06:16 Temperature Source Temporal Artery S can 07/30/22 06:16 Pulse Rate 84 07/30/22 06:16 Respiratory Rate 16 07/30/22 06:16 Blood Pressure 132/72 07/30/22 06:16 Blood Pressure Shanice n 92 07/30/22 06:16 Pulse Oximetry 97 07/30/22 06:16 Oxygen Delivery Me thod Room Air 07/30/22 06:16 Exam: Pre-Anes Outpt Exam: alert, oriented x 3, clear to auscultation bilaterally and regular rate & rhythm Cardiac Studies: No Data to Display
--- NOTE | 2022-07-30 09:05 | XR_ITS ---
WS: [id number] EXAMINATION: XR hip RT 1V wo/[place] pel [id number] REASON FOR EXAM: Total hip arthroplasty COMPARISON: Pre-op study on 06/06/2022 ORDER DATE: 07/30/2022 9:15 AM TECHNIQUE: Frontal view of the right hip were obtained. X-RAY FINDINGS: Total hip replacement noted. Prosthesis components appear to be in satisfactory position. There is walsh rrounding soft tissue gas in edema from prior recent surgery XR/XR hip RT 1V wo/w pel [id number] IMPRESSION: 1. Unremarkable post hip replacement postsurgical change.
--- NOTE | 2022-07-30 09:06 | P.OP_ITS ---
Operative Report Date of procedure: July 30, 2022 Pre-op diagnosis: Preop Diagnosis Osteoarthritis right hip Post-op diagnosis: same Post-op diagnosis: Same Procedure done: Right total hip arthroplasty Implants: 1) Spring Arbor 52 mm Trident 2 solid back acetabular shell 2) Size 5 Spring Arbor 127 degree neck angle Accolade 2 stem 3} 28mm standard ceramic femoral head 4} Size E MDM metal liner Pathology: none sent Surgeon: Silvestre Chavez Instructor Programmable Controllers: Brock Morales Instructor Programmable Controllers: The nurse practitioner assisted with critical portions of the case including positioning, exposure, implantation of components, closure, and postoperative abduction pillow application. Anesthesia: Nerve Block (Spinal) Estimated blood loss (mL): 100 Complications: None Findings: Jade has severe degenerative changes of the right hip with complete obliteration of the joint and osteophytes about the femoral head. Condition: stable Disposition: PACU Procedure: The patient was taken to the operating room and anesthesia provided by the anesthesia service. The patient was placed in the lateral position on a pegboard. A timeout was performed. The patient was draped in the usual fashion. A 15 cm long incision was made beginning just proximal to the greater trochanter and extending posteriorly to a point just distal to the trochanter on the posterior border of the trochanter. Dissection was carried down with electrocautery through the subcutaneous fat to the fascia ana which was divided proximally and distally with curved scissors. The anterior two thirds of the gluteus medius and minimus were elevated off the hip with electrocautery. The c apsule was divided in a H-like fashion. The hip was dislocated and a neck cut made just above the level of the lesser trochanter. Exposure of the acetabulum was facilitated with the acetabular retractors. Remnants of labrum and peripheral osteophytes were removed with electrocautery and a rongeur. A reamer 2 mm under the size the femoral head was utilized to ream medially to the base of the palm and are. Reaming was then increased in 1 mm intervals until a healthy rim a trabecular bone was encountered. The rim was touched with the reamer the size of the final acetabular shell to be placed. A final Trident 2 acetabular cup of the same size as the final reaming was press- fit into place. The ADM liner was secured. Attention was then focused on the femur. The canal was localized with a canal finder. Broaching was then accomplished until a stable broach size was obtained. A trial reduction with the head and neck provided excellent stability. The wound was irrigated with saline and antibiotic solution. The final Spring Arbor Accolade II stem was press-fit into place. The femoral head was placed and the hip was reduced. The hip was brought through range of motion and found to be free of impingement and stable. The anterior capsule was reapproximated with 1 Ethibond. The gluteus medius and minimus were repaired through bone with 5 Ethibond and reinforced with 1 Ethibond. The fascial ana was closed with a running 0 Stratafix suture. Deep pelvic tissues were closed with 2-0 Stratafix and the skin with a running 4-0 l Stratafix. The skin was covered with a Prineo dressing and op site dressings.
[2022-07-30] MEDS: sodium chloride 0.9% 1,000 ML 100 ML IV ×2 (11:19→22:17)
[2022-07-30] MEDS: morphine 4 mg/mL SDV 1 mL 2 MG IVP ×3 (11:53→15:25)
--- NOTE | 2022-07-30 14:36 | ANE.PACU2 ---
Inpatient post-anesthesia follow up: Airway intact: Yes Vital signs: Temperature 97.8 F Pulse Rate 70 Respiratory Rate 20 Blood Pressure 120/68 Pulse Oximetry 98 Oxygen Delivery Me thod Room Air Oxygen Flow Rate 6 Fraction of Inspir ed Oxygen Hydration adequate: Yes Nausea and vomiting: No Pain level: 1 Mental status: Baseline
[2022-07-30] MEDS: aspirin 325 mg Tablet PO (15:30)
[2022-07-30] MEDS: sennosides-docusate Tablet 2 TAB PO (17:04)
[2022-07-30] MEDS: ondansetron 2 mg/ML SDV 2 mL 4 MG IVP (18:08)
[2022-07-30] MEDS: oxyCODONE 5 mg IR Tab/Cap PO ×2 (18:17→22:21)
[2022-07-31] VITALS: BP 114/61; PULSE 85; RESP 16; TEMP 36.7; O2SAT 93
[2022-07-31 02:20] VITALS: RESP 18; O2SAT 93
[2022-07-31] MEDS: oxyCODONE 5 mg IR Tab/Cap PO ×2 (02:20→06:24)
[2022-07-31 04:00] VITALS: BP 113/58; PULSE 89; RESP 16; TEMP 36.8; O2SAT 96
[2022-07-31 04:58] LABS: Hemoglobin 11.8 g/dL (11.5-15.3)
[2022-07-31] MEDS: acetaminophen 500 mg Tablet 1000 MG PO (06:23)
[2022-07-31 06:24] VITALS: RESP 18; O2SAT 94
[2022-07-31] MEDS: ceFAZolin 2,000 MG in sodium chloride 0.9% (plus) 50 ML 100 MG IV (06:24)
--- NOTE | 2022-07-31 07:49 | PC.PHAR ---
unable to update med rec has pts discharge orders in-ext med history shows premarin vaginal cream last filled 02/07/22-ext med history also shows an albuterol hfa inhaler 2p q4h prn filled 08/26/21
[2022-07-31 07:52] VITALS: BP 119/57; PULSE 83; TEMP 36.9; O2SAT 93
[2022-07-31 08:00] VITALS: PULSE 81; RESP 16; O2SAT 98
[2022-07-31] MEDS: sodium chloride 0.9% 1,000 ML 100 ML IV (08:09)
[2022-07-31] MEDS: sennosides-docusate Tablet 2 TAB PO (08:10)
--- NOTE | 2022-07-31 09:01 | P.DS_ITS ---
Discharge Providers Date of Admission: 07/30/22 09:49 Date of Discharge: July 31, 2022 Attending Provider at Admission: Silvestre Deleon MD Attending Provider at Discharge: Silvestre Deleon MD Primary Care Provider: [place] Vela MD Diagnoses at Discharge Discharge Diagnosis (1) Arthritis of right hip: Status: Resolved (2) Status post right hip replacement: Status: Acute Reason for Visit Reason for Visit: M16.11 Brief History: This is a 72-year-old female with a history of chronic progressive right hip pain admitted for right total hip arthroplasty Hospital Course Hospital Course The patient tolerated surgery well. They remained hemodynamically stable. They was begun on aspirin and sequential compression dressings for DVT prophylaxis. The patient was mobilized with therapy beginning the day of surgery and by the first postoperative day independent with the walker. As the pain was adequately controlled and they were fully mobile they were discharged home. Physical Exam Narrative: On the day of discharge the hip incision was clean. The incision was free of drainage. They had no particular swelling about the thigh or distal. No distal neurovascular deficits were noted. Discharge Data Studies Completed and Pending Completed Studies During Hospitalization Category Date Time Status XR hip RT 1V wo/w pel [id number] Routine Exams 07/30/22 09:05 Completed Radiology Impressions Hip X-Ray 07/30/22 09:05 IMPRESSION: 1. Unremarkable post hip replacement postsurgical change. Laboratory Results WBC 5.6 10^3/uL (4.0-10.0) 07/23/22 10:30 RBC 4.85 10^6/uL (4.1-5.3) 07/23/22 10:30 Hgb 11.8 g/dL (11.5-15.3) 07/31/22 04:49 Hct 42.9 % (37.0-47.0) 07/23/22 10:30 MCV 88.5 fl (81-99) 07/23/22 10:30 MCH 28.9 pg (28.0-34.0) 07/23/22 10:30 MCHC 32.6 g/dL (30.0-36.0) 07/23/22 10:30 RDW 12.5 % (12.1-15.1) 07/23/22 10:30 Plt Count 238 10^3/cmm (130-400) 07/23/22 10:30 MPV 11.2 fL (7.4-10.4) H 07/23/22 10:30 Neut % (Auto) 51.7 % 07/23/22 10:30 Lymph % (Auto) 31.7 % 07/23/22 10:30 Hitchcock % (Auto) 10.5 % 07/23/22 10:30 Eos % (Auto) 4.8 % 07/23/22 10:30 Baso % (Auto) 1.1 % 07/23/22 10:30 Neut # (Auto) 2.91 10^3/uL (1.8-7.7) 07/23/22 10:30 Lymph # (Auto) 1.8 10^3/uL (0.8-4.8) 07/23/22 10:30 Hitchcock # (Auto) 0.6 10^3/uL (0.2-0.9) 07/23/22 10:30 Eos # (Auto) 0.3 10^3/uL (0.0-0.8) 07/23/22 10:30 Baso # (Auto) 0.1 10^3/uL (0.0-0.1) 07/23/22 10:30 Nucleated RBC % (auto) 0 % 07/23/22 10:30 Nucleated RBCs # 0.0 /100WBC 07/23/22 10:30 Sodium 137 mmol/L (136-145) 07/23/22 10:15 Potassium 4.2 mmol/L (3.5-5.1) 07/23/22 10:15 Chloride 102 mmol/L (98-107) 07/23/22 10:15 Carbon Dioxide 28 mmol/L (22-29) 07/23/22 10:15 Anion Gap 11.2 (5-19) 07/23/22 10:15 BUN 17 mg/dL (8-23) 07/23/22 10:15 Creatinine 0.6 mg/dL (0.5-0.9) 07/23/22 10:15 GFR Calculation 98.8 mL/min (90-130) 07/23/22 10:15 Glucose 86 mg/dL (65-115) 07/23/22 10:15 Calculated Osmolality 285 mOsm/kg (285-295) 07/23/22 10:15 Calcium 9.2 mg/dL (8.5-10.5) 07/23/22 10:15 Total Bilirubin 0.2 mg/dL (0.15-1.2) 07/23/22 10:15 AST 20 U/L (0-32) 07/23/22 10:15 ALT 11 U/L (0-33) 07/23/22 10:15 Alkaline Phosphatase 71 U/L (35-105) 07/23/22 10:15 Total Protein 6.7 g/dL (6.6-8.7) 07/23/22 10:15 Albumin 4.3 g/dL (3.5-5.2) 07/23/22 10:15 Globulin 2.4 g/dL (1.3-4.6) 07/23/22 10:15 Urine Color Yellow (Yellow) 07/23/22 10:15 Urine Appearance Clear (CLEAR) 07/23/22 10:15 Urine pH 5 (5-7) 07/23/22 10:15 Ur Specific [place] 1.015 (1.005-1.030) 07/23/22 10:15 Urine Protein Neg (Negative) 07/23/22 10:15 Urine Glucose (UA) Norm (Normal) 07/23/22 10:15 Urine Ketones Negative (Negative) 07/23/22 10:15 Urine Blood Neg (Negative) 07/23/22 10:15 Urine Nitrate Negative (Negative) 07/23/22 10:15 Urine Bilirubin Neg (Negative) 07/23/22 10:15 Urine Urobilinogen Norm mg/dL (Negative) 07/23/22 10:15 Ur Leukocyte Esterase Negative (Negative) 07/23/22 10:15 Vitals Last Vital Signs Temp 98.4 F 07/31/22 07:52 Pulse 83 07/31/22 07:52 Resp 18 07/31/22 06:24 BP 119/57 07/31/22 07:52 Pulse Ox 93 07/31/22 07:52 O2 Del Method Room Air 07/31/22 04:00 O2 Flow Rate 6 07/30/22 09:12 Discharge Plan Discharge Patient Disposition: Home Condition: Stable Prescriptions: New acetaminophen 500 mg Tablet 1,000 mg PO Q8H 14 Days Qty: 84 0RF oxycodone 5 mg Tablet 5 mg PO Q4H PRN (Reason: Moderate Pain) 7 Days Qty: 30 0RF aspirin 325 mg tablet,delayed release (DR/EC) 325 mg PO DAILY Qty: 30 0RF Continued (DME) fast form cock up splint See Rx Instructions .Route .MEDSUPPLY Qty: 1 0RF Rx Instructions: As directed (DME) cock up splint See Rx Instructions .Route .MEDSUPPLY Qty: 1 0RF Rx Instructions: As directed conjugated estrogens 0.625 mg/gram cream 0.3125 mg vaginal DAILY Qty: 42.5 0RF Rx Instructions: daily for 14 days, then 2 times weekly atorvastatin 10 mg tablet 10 mg PO DAILY Qty: 90 3RF multivitamin Tablet 1 tab PO DAILY Discontinued naproxen 500 mg tablet,delayed release (DR/EC) 500 mg PO BID Qty: 180 11RF Discharge Orders: Discharge Order (Routine); Ordered 07/31/22 Ordered By: Silvestre Deleon Referrals: Silvestre Deleon MD [Physician] - Discharge Diet: Advance as tolerated Discharge Activity: Limit activity as instructed Patient Instructions: Oxycodone, Rapid Release (By mouth), Total Hip Replacement (DC), Joint Replacement Stoplight, Opioid Safety Activity Restrictions/Additional Instructions: Okay to shower. No soaking incision in tub Apply FirstIce up to 20 min/hr for pain and swelling Take Neurontin twice a day for 7 days. Take Tylenol 500mg (up to 2 tabs) 3 times a day for mild pain Take oxycodone for breakthrough pain. Exercises per physical therapy. May weight-bear as tolerated on total hip arthroplasty IF HAVE ANY PROBLEMS OR QUESTIONS CALL [facility]PITAL GAS METER REPAIR SUPERVISOR AT AND ASK TO HAVE DR. DELEON PAGED. Discharge Attestations Time Spent in Discharge Care*: other Status at Discharge: Cognitive status at discharge: cognitively intact , Behavioral status at discharge: cooperative , Quality Metrics Clinical Quality Measures [ No reported AMI, CVA or VTE this stay] Coding Level of Care Code Acute Code for [facility] Fwd Diagnoses Arthritis of right hip M16.11 Status post right hip replacement Z96.641
--- NOTE | 2022-07-31 09:59 | PC.CHAP ---
Pastoral Care Encounter/Spiritual Assessment Type of Contact [] Declined chemical processing equipment repairer visit [] Patient/Family/Request visit [] Outpatient visit [] Follow-up visit [] Physician referral [] Code/Alert [x] Routine visit [] Staff referral [] Actively dying [] Patient sleeping [] Family support [] [] Out of room [] Palliative care [] [] Receiving care in room [] Pre-surgical visit [] Trauma [] Long length of stay [] ICU visit [] Other: Relational/Emotional Strength [] Patient feels connected with others/family/visitors/staff [x] Distress [] Loneliness/isolation [] Abandonment Spirituality of Patient [] Person of Stephanie [] Attends Anabaptist of their Stephanie [] Believes in Prayer [] Reads Bible or Evangelical materials [x] There are Spiritual issues to be addressed refused prayer Block Placer Interventions [] Prayer [] Active listening [] Non-anxious presence [] Spiritual/emotional support [] Crisis/trauma care [] Spiritual counseling [] Bereavement support [] Provided bereavement packet [] Provided Bible/devotional materials [] Provided toy/stuffed animal, coloring book to patient or family member [] Provided Communion [] Anointing/[place] [] Salvation [] Completed spiritual assessment [] Other: Impact on Illness or Injury [] Angry [] Fearful [] Anxious [] Often cries [] Exhaustion [] Unable to work [] Unable to attend caodaism [] Unable to walk/stand [] Unable to read [] Unable to drive [] Unable to eat/drink [] Unable to sleep [] Unable to be with family [] Patient intubated [] Other: Summary Time spent with patient
== END 2022-07-31 12:30 | disposition home health service (06) ==
LOC: MEDSURG 09:49
PROVIDERS: Anesthesiology; Admitting Provider Orthopaedic Surgery; PCP Family Medicine; Visit Provider Orthopaedic Surgery
PROC: (CPT 27130; principal; 2022-07-30 07:00)
DX: M16.11 Unilateral primary osteoarthritis, right hip (principal); E78.5 Hyperlipidemia, unspecified; Z79.1 Long term (current) use of non-steroidal anti-inflammatories (NSAID); G25.2 Other specified forms of tremor
CPT/HCPCS: 27130; 36415; 73501; 80053; 81003; 85018; 85025; 97116; 97161; 97165; 97530; C1776; G0378; J0690; J1580; J2270; J2405; J2704; J7030; P9045

== ENCOUNTER → 2022-08-03 10:09 | Outpatient (BNVA) | payer MEDICARE, OTHER, SELFPAY | PROVIDERS: PCP Family Medicine; Visit Provider Nurse Practitioner Family | DX: Z96.641 Presence of right artificial hip joint (principal) | CPT/HCPCS: 99024 ==

== ENCOUNTER → 2022-09-07 09:23 | Outpatient (BNVA) | payer MEDICARE, OTHER, SELFPAY | PROVIDERS: PCP Family Medicine; Visit Provider Student in an Organized Health Care Education/Training Program | DX: Z96.641 Presence of right artificial hip joint (principal) | CPT/HCPCS: 73502; 99024 ==

== ENCOUNTER 2022-09-19 13:52 | Outpatient (RCR) | payer MEDICARE, OTHER, SELFPAY | END 2022-10-11 23:59 | disposition home or self-care (01) | LOC: SPT 13:52 | PROVIDERS: Visit Provider Student in an Organized Health Care Education/Training Program | DX: Z47.1 Aftercare following joint replacement surgery (principal); Z96.641 Presence of right artificial hip joint | CPT/HCPCS: 97110; 97161 ==

== ENCOUNTER 2022-10-12 06:00 | Outpatient (RCR) | payer MEDICARE, OTHER, SELFPAY | END 2022-11-10 23:59 | disposition home or self-care (01) | LOC: SPT 06:00 | PROVIDERS: Visit Provider Student in an Organized Health Care Education/Training Program | DX: Z47.1 Aftercare following joint replacement surgery (principal); Z96.641 Presence of right artificial hip joint | CPT/HCPCS: 97110 ==

== ENCOUNTER 2022-12-11 13:48 | Outpatient (CLI) | payer MEDICARE, OTHER, SELFPAY ==
--- NOTE | 2022-12-11 13:59 | XRR_ITS ---
PROCEDURE INFORMATION: Exam: XR Right Hip Exam date and time: 12/11/2022 2:01 PM Age: 72 years old Clinical indication: Hip pain; Right hip; Prior surgery; Surgery date: 1-6 months; Surgery type: Pain for 1 week, hip replaced in July; Additional info: RT hip pain, evaluate prosthesis TECHNIQUE: Imaging protocol: Radiologic exam of the right hip. Views: 1 view hip with pelvis when performed. COMPARISON: CR XR hip RT 2-3V wo/w pel* [id number] 09/07/2022 9:23 AM FINDINGS: Bones/joints: Right hip replacement. No fracture or bony destructive lesions. Soft tissues: Unremarkable. Other findings: No evidence for loosening or subsidence. XR/XR hip RT 2-3V wo/w pel* [id number] IMPRESSION: No acute findings.
== END 2022-12-11 13:49 | disposition home or self-care (01) ==
PROVIDERS: PCP Family Medicine; Visit Provider Family Medicine
DX: Z96.641 Presence of right artificial hip joint (principal); M25.551 Pain in right hip
CPT/HCPCS: 73502

== ENCOUNTER → 2023-01-17 11:19 | Outpatient (BNVA) | payer MEDICARE, OTHER, SELFPAY | PROVIDERS: PCP Family Medicine; Visit Provider Family Medicine | DX: J00 Acute nasopharyngitis [common cold] (principal); J06.9 Acute upper respiratory infection, unspecified | CPT/HCPCS: 87426 ==

== ENCOUNTER 2023-12-19 09:48 | Outpatient (CLI) | payer MEDICARE, OTHER, SELFPAY ==
--- NOTE | 2023-12-19 09:49 | MM_ITS ---
WS: [id number] BILATERAL SCREENING DIGITAL TOMOSYNTHESIS MAMMOGRAM WITH CAD HISTORY: SCREENING COMPARISON: 11/17/2021, 12/11/2018 Bilateral CC and MLO views with tomosynthesis and synthetic mammography submitted. Computer aided det ection analyzed. Breast composition: The breasts are extremely dense, which lowers the sensitivity of mammography. No suspicious masses, microcalcifications or architectural distortion. MM/MM scr BI tomosynthesis [id number] IMPRESSION: BI-RADS: 2 - Benign FOLLOW UP: 1 Year Follow-up
== END 2023-12-19 09:49 | disposition home or self-care (01) ==
LOC: RAD 09:49
PROVIDERS: PCP Family Medicine; Visit Provider Family Medicine
DX: Z12.31 Encounter for screening mammogram for malignant neoplasm of breast (principal); R92.333 Mammographic heterogeneous density, bilateral breasts
CPT/HCPCS: 77063; 77067

== ENCOUNTER → 2024-02-15 12:34 | Outpatient (BNVA) | payer MEDICARE, OTHER, SELFPAY | PROVIDERS: PCP Family Medicine; Visit Provider Emergency Medicine | DX: R05.9 Cough, unspecified (principal) | CPT/HCPCS: 87426 ==

== ENCOUNTER → 2024-05-22 12:38 | Outpatient (BNVA) | payer MEDICARE, OTHER, SELFPAY | PROVIDERS: PCP Family Medicine; Visit Provider Nurse Practitioner Family | DX: R09.02 Hypoxemia (principal); R91.8 Other nonspecific abnormal finding of lung field; J98.4 Other disorders of lung | CPT/HCPCS: 71046 ==

== ENCOUNTER 2024-05-22 14:09 | Inpatient (IN) | payer MEDICARE, OTHER, SELFPAY ==
[2024-05-22] VITALS (7 sets, daily range): BP systolic 124–147; BP diastolic 53–68; PULSE 105–114; RESP 18; TEMP 37.1–37.2; O2SAT 87–93; BMI 22.7
--- NOTE | 2024-05-22 14:30 | XR_ITS ---
WS: [id number] Exam: XR chest 1V portable [id number] Date/Time of Exam: 05/22/2024 2:40 PM Reason For Exam: Shortness of breath Comparison 05/22/2024. At 12:57 p.m. Again noted is infiltrate in the RIGHT lower lung zone suggesting pneumonia. Remaining lung frye are clear. Superimposed chronic interstitial changes. Normal cardiomediastinal silhouette. Bony structures are intact. XR/XR chest 1V portable [id number] IMPRESSION: 1. Infiltrate in the RIGHT lower lung zone suspicious for pneumonia. No change.
--- NOTE | 2024-05-22 14:30 | ECG_ITS ---
[facility] Test Date: 2024-05-22 Pat Name: Jade Hugo Department: Room: Gender: Female Quality Assurance/R&D Lab Technician: : [id number] Requested By: Ruby Najera Order Number: [id number] Mayi MD: Monty Gonzalez M.D. Measurements Intervals [place] Rate: 110 P: 69 WA: 124 QRS: 45 QRSD: 89 T: 50 QT: 271 QTc: 368 Interpretive Statements SINUS TACHYCARDIA POSSIBLE LEFT ATRIAL ENLARGEMENT [-0.1mV P-WAVE IN V1/V2] POSSIBLE RIGHT VENTRICULAR CONDUCTION DELAY [RSR (QR) IN V1/V2] NONSPECIFIC T-WAVE ABNORMALITY ABNORMAL RHYTHM ECG Compared to ECG 07/23/2022 10:21:40 T-wave abnormality now present Sinus rhythm no longer present Electronically Signed On 05-23-2024 13:06:54 CDT by Monty Gonzalez M.D. [email or web address]
[2024-05-22 14:54] LABS: Basophils % 0.2 %; Eosinophils % 0.1 %; Hematocrit 39.6 % (36-47); Lymphocytes # 1.2 10^3/uL (0.8-4.8); Lymphocytes % 9.6 %; Mean Corpuscular HGB Conc 33.1 g/dL (30-55); Mean Corpuscular Hemoglobin 28.9 pg (27-33); Mean Corpuscular Volume 87.4 fl (85-98); Mean Platelet Volume 10.5 fL (7.4-10.4); Monocytes # 1.9 10^3/uL (0.2-0.9); Monocytes % 14.8 %; Neutrophils # 9.34 10^3/uL (1.8-7.7); Neutrophils % 74.2 %; Nucleated Red Blood Cells % 0 %; Platelet Count 270 10^3/cmm (157-399); Red Blood Count 4.53 10^6/uL (3.85-5.65); Red Cell Distribution Width 13.2 % (12.1-15.1)
--- NOTE | 2024-05-22 15:00 | W.ED.COVID ---
Documented by User: Ruby Villalta MD 05/22/24 18:08 HPI - COVID General: Chief Complaint: COVID symptoms Stated Complaint: sent by urgent care poss covid Time Seen by Provider: 05/22/24 14:27 History of Present Illness: 73-year-old female with a history of diverticulosis and a tremor who presents the emergency room with shortness of breath, cough, fevers. She is hypoxic on presentation. She just traveled from [place] on a plane. No lower extremity swelling. No altered mental status. No nausea or vomiting. COVID Results: SARS-CoV-2 Ag (Rapid) Positive (Negative) H 05/22/24 14:35 05/22/24 Nasal/Oral COVID-19 PCR Not detected 08/17/20 15:05 08/17/20 SARS-CoV-2 (PCR) Positive (Negative) A 05/22/24 14:55 05/22/24 Related Data Home Medications ?Medication ?Instructions ?Recorded ?Confirmed multivitamin 1 tab PO DAILY 07/23/22 05/22/24 acetaminophen 325 mg capsule 325 mg PO QID PRN Fever Or Pain 09/07/22 05/22/24 (Tylenol) Previous Rx's ?Medication ?Instructions ?Recorded guaifenesin 1,200 mg tablet, 1,200 mg PO BID #60 tabs 05/22/24 extended release 12 hr (Mucinex) Allergies Allergy/AdvReac Type Severity Reaction Status Date / Time celecoxib (From Celebrex) Allergy Intermediate rash Verified 05/22/24 12:20 Sulfa (Sulfonamide Allergy ALGY-Rash Verified 05/22/24 14:57 Antibiotics) Review of Systems Narrative: Constitutional symptoms: Negative except as documented in HPI. Skin symptoms: Negative except as documented in HPI. Eye symptoms: Negative except as documented in HPI. ENMT symptoms: Negative except as documented in HPI. Respiratory symptoms: Negative except as documented in HPI. Cardiovascular symptoms: Negative except as documented in HPI. Gastrointestinal symptoms: Negative except as documented in HPI. Genitourinary symptoms: Negative except as documented in HPI. Musculoskeletal symptoms: Negative except as documented in HPI. Neurologic symptoms: Negative except as documented in HPI. Psychiatric symptoms: Negative except as documented in HPI. Endocrine symptoms: Negative except as documented in HPI. 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 Not sure of cause. Dr. Joya at [facility] Osteoarthritis of knees, bilateral Diverticulosis Hemorrhoids Acute appendicitis Condition resolved Tremor Surgical History History of appendectomy History of hemorrhoidectomy History of hysterectomy 2016 History of arthroscopic knee surgery bilateral knee by Dr. Bowers Family History Grandfather Hypertension Maternal Father Cancer lung Mother Hypertension Thyroid disease Denies family history of Diabetes CAD (coronary artery disease) Hyperlipidemia Chronic kidney disease (CKD) Bleeding disorder Stroke Social History (Updated 05/22/24 @ 20:27 by Juan Wagner MD) Smoking and tobacco/nicotine status: never used tobacco/nicotine Quit status (tobacco/nicotine): has quit using Year quit tobacco: 1977 Alcohol intake: current Substance/Drug Use: never Additional social history: 2 glasses of wine a week Lives independently: Yes Household members: spouse Marital status: Physical Exam Narrative: EXAM NARRATIVE: General: Alert, no acute distress. Skin: Warm, dry. Head: Normocephalic, atraumatic. Neck: Supple, trachea midline. Eye: Extraocular movements are intact. Ears, nose, mouth and throat: mucosa moist. Cardiovascular: Tachycardic, regular, Normal peripheral perfusion. Respiratory: Lungs are clear to auscultation, respirations are non-labored, breath sounds are equal, Symmetrical chest wall expansion. Gastrointestinal: Soft, Nontender, Non distended Musculoskeletal: Normal ROM, no deformity. Neurological: Alert and oriented, No focal neurological deficit observed. Psychiatric: Cooperative, appropriate mood & affect. Course Vital Signs: Vital signs: Vital Signs Temperature 99.1 F 05/23/24 00:00 Pulse Rate 93 05/23/24 00:00 Respiratory Rate 18 05/23/24 00:00 Blood Pressure 124/64 05/23/24 00:00 Pulse Oximetry 90 05/23/24 00:00 Oxygen Delivery Me thod Nasal Cannula 05/23/24 00:00 Oxygen Flow Rate 4 05/22/24 23:58 MDM - COVID Medical Decision Making Differential diagnosis for patient with shortness of breath includes but is not limited to and based on the above HPI, review of systems and physical exam: Pneumonia. Bronchitis. Asthma or COPD with acute exacerbation. Acute coronary syndrome / DC. Pulmonary embolism. Anxiety. Congestive heart failure. Viral infections including influenza and Covid-19. Atrial fibrillation. Anxiety. Pleural effusion. Pneumothorax. Orders placed to evaluate differential diagnosis based on the above differential, HPI and physical exam Chest x-ray: There are some infiltrate on the right that suspicious for pneumonia. This was reviewed and interpreted by myself the emergency room physician. I also reviewed the radiology report. Lab Review: Laboratory results were reviewed and interpreted by myself the emergency room physician. Mild leukocytosis with a white count of 12. No renal failure. No anemia. D-dimer is elevated. CTA of the chest with PE protocol: Findings suspicious for pneumonia see full read below. No evidence of PE. This was reviewed and interpreted by myself the emergency room physician. I also reviewed the radiology report. I reviewed the patient's medical record. Reexamination: Patient has remained stable but is requiring 5 to 6 L nasal cannula. No altered mental status. No focal motor deficits. Assessment and plan: COVID-19 Pneumonia Hypoxemia ?IV Levaquin, IV Decadron. Requiring 5 to 6 L nasal cannula so needs to be admitted. - Discussed findings and plan with patient. Answered any questions. - All laboratory values were reviewed and interpreted personally by myself, the ER physician - All imaging was reviewed and interpreted personally by myself, the ER physician. - Evaluation and treatment of this problem were appropriate in the emergency setting Lab Data 05/22/24 14:42 05/22/24 14:42 Radiology Impressions Chest X-Ray 05/22/24 14:30 IMPRESSION: 1. Infiltrate in the RIGHT lower lung zone suspicious for pneumonia. No change. Chest CTA 05/22/24 15:30 IMPRESSION: 1. Bronchial wall thickening and mucous plugging involving the bronchus intermedius, right middle lobe and right lower lobe bronchi, and segmental bronchi in the right middle and lower lobes and in left lingular and left lower lobe bronchi and segmental bronchi. Ground-glass opacities in the right upper lobe and reticulonodular interstitial thickening with extensive alveolar airspace disease and air bronchograms in the right lower lobe. Patchy ground-glass opacities and reticulonodular interstitial thickening diffusely in the left lung. Findings are suspicious for pneumonia, including atypical organisms. Recommend followup chest imaging to insure resolution of these findings. Lungs: No pulmonary parenchymal nodules or masses. 2. No evidence for pulmonary embolism. 3. Incidental/nonacute findings are listed in the report. Laboratory Results WBC 12.60 10^3/uL (3.29-11.43) H 05/22/24 14:42 RBC 4.53 10^6/uL (3.85-5.65) 05/22/24 14:42 Hgb 13.10 g/dL (11.27-16.99) 05/22/24 14:42 Hct 39.6 % (36-47) 05/22/24 14:42 MCV 87.4 fl (85-98) 05/22/24 14:42 MCH 28.9 pg (27-33) 05/22/24 14:42 MCHC 33.1 g/dL (30-55) 05/22/24 14:42 RDW 13.2 % (12.1-15.1) 05/22/24 14:42 Plt Count 270 10^3/cmm (157-399) 05/22/24 14:42 MPV 10.5 fL (7.4-10.4) H 05/22/24 14:42 Neut % (Auto) 74.2 % 05/22/24 14:42 Lymph % (Auto) 9.6 % 05/22/24 14:42 [place] % (Auto) 14.8 % 05/22/24 14:42 Eos % (Auto) 0.1 % 05/22/24 14:42 Baso % (Auto) 0.2 % 05/22/24 14:42 Neut # (Auto) 9.34 10^3/uL (1.8-7.7) H 05/22/24 14:42 Lymph # (Auto) 1.2 10^3/uL (0.8-4.8) 05/22/24 14:42 [place] # (Auto) 1.9 10^3/uL (0.2-0.9) H 05/22/24 14:42 Eos # (Auto) 0.0 10^3/uL (0.0-0.8) 05/22/24 14:42 Baso # (Auto) 0.0 10^3/uL (0.0-0.1) 05/22/24 14:42 Nucleated RBC % (auto) 0 % 05/22/24 14:42 Nucleated RBCs # 0.0 /100WBC 05/22/24 14:42 D-Dimer 2.23 ug/mLFEU (0-0.59) H 05/22/24 14:42 Specimen Type Arterial 05/22/24 15:30 Sample Site Radial, left 05/22/24 15:30 ABG pH 7.53 (7.35-7.45) H 05/22/24 15:30 ABG pCO2 40.1 mmHg (35-45) 05/22/24 15:30 ABG pO2 53.5 mmHg (80.0-100.0) L 05/22/24 15:30 ABG PO2/FiO2 Ratio 133 05/22/24 15:30 ABG HCO3 33.2 mmol/L (22-26) H 05/22/24 15:30 ABG O2 Saturation 90.8 05/22/24 15:30 ABG Base Excess 9.6 mmol/L (-2.0-2.0) H 05/22/24 15:30 Lew Test Pos 05/22/24 15:30 A-a O2 Gradient 23.9 mmHg (5-10) H 05/22/24 15:30 Hematocrit 41.6 % (37-47) 05/22/24 15:30 Hgb O2 Saturation 89.7 % (95-100) L 05/22/24 15:30 Carboxyhemoglobin 1.0 %THgb (0.4-20.1) 05/22/24 15:30 Methemoglobin 0.2 % (0.4-1.5) L 05/22/24 15:30 Total Hemoglobin 13.6 g/dL (12-16) 05/22/24 15:30 Sodium 132.0 mmol/L (131-143) 05/22/24 15:30 Potassium 3.0 mmol/L (3.5-5.0) L 05/22/24 15:30 Glucose 122.0 mg/dL (70-115) H 05/22/24 15:30 Ionized Calcium 1.1 mmol/L (1.1-1.4) 05/22/24 15:30 O2 Delivery Device Nc 05/22/24 15:30 O2 Liters/Min 5.0 % 05/22/24 15:30 FiO2 40.0 % 05/22/24 15:30 Reverser ID glc 05/22/24 15:30 Sodium 130 mmol/L (136-145) L 05/22/24 14:42 Potassium 3.3 mmol/L (3.5-5.1) L 05/22/24 14:42 Chloride 87 mmol/L (98-107) L 05/22/24 14:42 Carbon Dioxide 28 mmol/L (22-29) 05/22/24 14:42 Anion Gap 18.3 (5-19) 05/22/24 14:42 BUN 8 mg/dL (8-23) 05/22/24 14:42 Creatinine 0.6 mg/dL (0.5-0.9) 05/22/24 14:42 GFR Calculation Not Reportable 05/22/24 14:42 Glucose 119 mg/dL (65-115) H 05/22/24 14:42 Calculated Osmolality 269 mOsm/kg (285-295) L 05/22/24 14:42 Lactic Acid 1.6 mmol/L (0.5-2.2) 05/22/24 14:42 Calcium 8.7 mg/dL (8.5-10.5) 05/22/24 14:42 Total Bilirubin 0.6 mg/dL (0.15-1.2) 05/22/24 14:42 AST 40 U/L (0-32) H 05/22/24 14:42 ALT 30 U/L (0-33) 05/22/24 14:42 Alkaline Phosphatase 121 U/L (35-105) H 05/22/24 14:42 Troponin T Baseline 9 ng/L (0-10) 05/22/24 14:42 Troponin T 120 Minute 10.62 ng/L (0-10) H 05/22/24 16:47 Delta Troponin T 1.62 ABS# (0-10) 05/22/24 16:47 C-Reactive Protein 313.1 mg/L (0.0-4.9) H 05/22/24 14:42 C-Reactive Protein 329.6 mg/L (0.0-4.9) H 05/22/24 14:42 NT-Pro-B Natriuret Pep 169 pg/mL (0-125) H 05/22/24 14:42 Total Protein 7.2 g/dL (6.6-8.7) 05/22/24 14:42 Albumin 4.0 g/dL (3.5-5.2) 05/22/24 14:42 Globulin 3.2 g/dL (1.3-4.6) 05/22/24 14:42 Influenza A (PCR) Negative (Negative) 05/22/24 14:55 Influenza Type B (PCR) Negative (Negative) 05/22/24 14:55 RSV (PCR) Negative (Negative) 05/22/24 14:55 SARS-CoV-2 (PCR) Positive (Negative) A 05/22/24 14:55 SARS-CoV-2 Ag (Rapid) Positive (Negative) H 05/22/24 14:35 05/22/24 Nasal/Oral COVID-19 PCR Not detected 08/17/20 15:05 08/17/20 SARS-CoV-2 (PCR) Positive (Negative) A 05/22/24 14:55 05/22/24 Discharge Plan Discharge Patient Disposition: Admitted As Inpatient Admit Provider: Carlita Houston Clinical Impression: COVID-19, Pneumonia, Hypoxemia Condition: Stable Discharge Diet: Usual diet Discharge Activity: Resume usual activity Coding Level of Care Code ED Drilling Fluids Specialist for Chg Fwd Documented by User: Ramirez Lake DO 05/23/24 01:18 HPI - COVID General: Chief Complaint: COVID symptoms Stated Complaint: sent by urgent care poss covid Time Seen by Provider: 05/22/24 14:27 COVID Results: SARS-CoV-2 Ag (Rapid) Positive (Negative) H 05/22/24 14:35 05/22/24 Nasal/Oral COVID-19 PCR Not detected 08/17/20 15:05 08/17/20 SARS-CoV-2 (PCR) Positive (Negative) A 05/22/24 14:55 05/22/24 Related Data Home Medications ?Medication ?Instructions ?Recorded ?Confirmed multivitamin 1 tab PO DAILY 07/23/22 05/22/24 acetaminophen 325 mg capsule 325 mg PO QID PRN Fever Or Pain 09/07/22 05/22/24 (Tylenol) Previous Rx's ?Medication ?Instructions ?Recorded guaifenesin 1,200 mg tablet, 1,200 mg PO BID #60 tabs 05/22/24 extended release 12 hr (Mucinex) Allergies Allergy/AdvReac Type Severity Reaction Status Date / Time celecoxib (From Celebrex) Allergy Intermediate rash Verified 05/22/24 12:20 Sulfa (Sulfonamide Allergy ALGY-Rash Verified 05/22/24 14:57 Antibiotics) [facility] ED PFS: Medical History 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 Not sure of cause. Dr. Joya at [facility] Osteoarthritis of knees, bilateral Diverticulosis Hemorrhoids Acute appendicitis Condition resolved Tremor Surgical History History of appendectomy History of hemorrhoidectomy History of hysterectomy 2016 History of arthroscopic knee surgery bilateral knee by Dr. Bowers Family History Grandfather Hypertension Maternal Father Cancer lung Mother Hypertension Thyroid disease Denies family history of Diabetes CAD (coronary artery disease) Hyperlipidemia Chronic kidney disease (CKD) Bleeding disorder Stroke Social History (Updated 05/22/24 @ 20:27 by Juan Wagner MD) Smoking and tobacco/nicotine status: never used tobacco/nicotine Quit status (tobacco/nicotine): has quit using Year quit tobacco: 1977 Alcohol intake: current Substance/Drug Use: never Additional social history: 2 glasses of wine a week Lives independently: Yes Household members: spouse Marital status: Course Vital Signs: Vital signs: Vital Signs Temperature 99.1 F 05/23/24 00:00 Pulse Rate 93 05/23/24 00:00 Respiratory Rate 18 05/23/24 00:00 Blood Pressure 124/64 05/23/24 00:00 Pulse Oximetry 90 05/23/24 00:00 Oxygen Delivery Me thod Nasal Cannula 05/23/24 00:00 Oxygen Flow Rate 4 05/22/24 23:58 MDM - COVID Lab Data 05/22/24 14:42 05/22/24 14:42 Radiology Impressions Chest X-Ray 05/22/24 14:30 IMPRESSION: 1. Infiltrate in the RIGHT lower lung zone suspicious for pneumonia. No change. Chest CTA 05/22/24 15:30 IMPRESSION: 1. Bronchial wall thickening and mucous plugging involving the bronchus intermedius, right middle lobe and right lower lobe bronchi, and segmental bronchi in the right middle and lower lobes and in left lingular and left lower lobe bronchi and segmental bronchi. Ground-glass opacities in the right upper lobe and reticulonodular interstitial thickening with extensive alveolar airspace disease and air bronchograms in the right lower lobe. Patchy ground-glass opacities and reticulonodular interstitial thickening diffusely in the left lung. Findings are suspicious for pneumonia, including atypical organisms. Recommend followup chest imaging to insure resolution of these findings. Lungs: No pulmonary parenchymal nodules or masses. 2. No evidence for pulmonary embolism. 3. Incidental/nonacute findings are listed in the report. Laboratory Results WBC 12.60 10^3/uL (3.29-11.43) H 05/22/24 14:42 RBC 4.53 10^6/uL (3.85-5.65) 05/22/24 14:42 Hgb 13.10 g/dL (11.27-16.99) 05/22/24 14:42 Hct 39.6 % (36-47) 05/22/24 14:42 MCV 87.4 fl (85-98) 05/22/24 14:42 MCH 28.9 pg (27-33) 05/22/24 14:42 MCHC 33.1 g/dL (30-55) 05/22/24 14:42 RDW 13.2 % (12.1-15.1) 05/22/24 14:42 Plt Count 270 10^3/cmm (157-399) 05/22/24 14:42 MPV 10.5 fL (7.4-10.4) H 05/22/24 14:42 Neut % (Auto) 74.2 % 05/22/24 14:42 Lymph % (Auto) 9.6 % 05/22/24 14:42 [place] % (Auto) 14.8 % 05/22/24 14:42 Eos % (Auto) 0.1 % 05/22/24 14:42 Baso % (Auto) 0.2 % 05/22/24 14:42 Neut # (Auto) 9.34 10^3/uL (1.8-7.7) H 05/22/24 14:42 Lymph # (Auto) 1.2 10^3/uL (0.8-4.8) 05/22/24 14:42 [place] # (Auto) 1.9 10^3/uL (0.2-0.9) H 05/22/24 14:42 Eos # (Auto) 0.0 10^3/uL (0.0-0.8) 05/22/24 14:42 Baso # (Auto) 0.0 10^3/uL (0.0-0.1) 05/22/24 14:42 Nucleated RBC % (auto) 0 % 05/22/24 14:42 Nucleated RBCs # 0.0 /100WBC 05/22/24 14:42 D-Dimer 2.23 ug/mLFEU (0-0.59) H 05/22/24 14:42 Specimen Type Arterial 05/22/24 15:30 Sample Site Radial, left 05/22/24 15:30 ABG pH 7.53 (7.35-7.45) H 05/22/24 15:30 ABG pCO2 40.1 mmHg (35-45) 05/22/24 15:30 ABG pO2 53.5 mmHg (80.0-100.0) L 05/22/24 15:30 ABG PO2/FiO2 Ratio 133 05/22/24 15:30 ABG HCO3 33.2 mmol/L (22-26) H 05/22/24 15:30 ABG O2 Saturation 90.8 05/22/24 15:30 ABG Base Excess 9.6 mmol/L (-2.0-2.0) H 05/22/24 15:30 Lew Test Pos 05/22/24 15:30 A-a O2 Gradient 23.9 mmHg (5-10) H 05/22/24 15:30 Hematocrit 41.6 % (37-47) 05/22/24 15:30 Hgb O2 Saturation 89.7 % (95-100) L 05/22/24 15:30 Carboxyhemoglobin 1.0 %THgb (0.4-20.1) 05/22/24 15:30 Methemoglobin 0.2 % (0.4-1.5) L 05/22/24 15:30 Total Hemoglobin 13.6 g/dL (12-16) 05/22/24 15:30 Sodium 132.0 mmol/L (131-143) 05/22/24 15:30 Potassium 3.0 mmol/L (3.5-5.0) L 05/22/24 15:30 Glucose 122.0 mg/dL (70-115) H 05/22/24 15:30 Ionized Calcium 1.1 mmol/L (1.1-1.4) 05/22/24 15:30 O2 Delivery Device Nc 05/22/24 15:30 O2 Liters/Min 5.0 % 05/22/24 15:30 FiO2 40.0 % 05/22/24 15:30 Reverser ID glc 05/22/24 15:30 Sodium 130 mmol/L (136-145) L 05/22/24 14:42 Potassium 3.3 mmol/L (3.5-5.1) L 05/22/24 14:42 Chloride 87 mmol/L (98-107) L 05/22/24 14:42 Carbon Dioxide 28 mmol/L (22-29) 05/22/24 14:42 Anion Gap 18.3 (5-19) 05/22/24 14:42 BUN 8 mg/dL (8-23) 05/22/24 14:42 Creatinine 0.6 mg/dL (0.5-0.9) 05/22/24 14:42 GFR Calculation Not Reportable 05/22/24 14:42 Glucose 119 mg/dL (65-115) H 05/22/24 14:42 Calculated Osmolality 269 mOsm/kg (285-295) L 05/22/24 14:42 Lactic Acid 1.6 mmol/L (0.5-2.2) 05/22/24 14:42 Calcium 8.7 mg/dL (8.5-10.5) 05/22/24 14:42 Total Bilirubin 0.6 mg/dL (0.15-1.2) 05/22/24 14:42 AST 40 U/L (0-32) H 05/22/24 14:42 ALT 30 U/L (0-33) 05/22/24 14:42 Alkaline Phosphatase 121 U/L (35-105) H 05/22/24 14:42 Troponin T Baseline 9 ng/L (0-10) 05/22/24 14:42 Troponin T 120 Minute 10.62 ng/L (0-10) H 05/22/24 16:47 Delta Troponin T 1.62 ABS# (0-10) 05/22/24 16:47 C-Reactive Protein 313.1 mg/L (0.0-4.9) H 05/22/24 14:42 C-Reactive Protein 329.6 mg/L (0.0-4.9) H 05/22/24 14:42 NT-Pro-B Natriuret Pep 169 pg/mL (0-125) H 05/22/24 14:42 Total Protein 7.2 g/dL (6.6-8.7) 05/22/24 14:42 Albumin 4.0 g/dL (3.5-5.2) 05/22/24 14:42 Globulin 3.2 g/dL (1.3-4.6) 05/22/24 14:42 Influenza A (PCR) Negative (Negative) 05/22/24 14:55 Influenza Type B (PCR) Negative (Negative) 05/22/24 14:55 RSV (PCR) Negative (Negative) 05/22/24 14:55 SARS-CoV-2 (PCR) Positive (Negative) A 05/22/24 14:55 SARS-CoV-2 Ag (Rapid) Positive (Negative) H 05/22/24 14:35 05/22/24 Nasal/Oral COVID-19 PCR Not detected 08/17/20 15:05 08/17/20 SARS-CoV-2 (PCR) Positive (Negative) A 05/22/24 14:55 05/22/24 All radiology interpretation(s) finalized by discharge Discharge Plan Discharge Patient Disposition: Admitted As Inpatient Admit Provider: Carlita Houston Clinical Impression: COVID-19, Pneumonia, Hypoxemia Condition: Stable Discharge Diet: Usual diet Discharge Activity: Resume usual activity Coding Level of Care Code ED Drilling Fluids Specialist for Oscar Chatterjee
[2024-05-22 15:11] LABS: D Dimer 2.23 ug/mLFEU (0-0.59); Lactic Sepsis W/Reflex 1.6 mmol/L (0.5-2.2)
[2024-05-22 15:13] LABS: Troponin(5th) Baseline 9 ng/L (0-10)
[2024-05-22 15:23] LABS: Slide Review Slide Review Perform
[2024-05-22 15:28] LABS: Alanine Aminotransferase 30 U/L (0-33); Alkaline Phosphatase 121 U/L (35-105); Anion Gap 18.3 (5-19); Aspartate Amino Transferase 40 U/L (0-32); Blood Urea Nitrogen 8 mg/dL (8-23); C Reactive Protein 313.1 mg/L (0.0-4.9); Calcium 8.7 mg/dL (8.5-10.5); Carbon Dioxide 28 mmol/L (22-29); Chloride 87 mmol/L (98-107); Creatinine Clr Calc Pharmacy 64.4217; Globulin 3.2 g/dL (1.3-4.6); Glucose 119 mg/dL (65-115); NT Pro B Type Natriuretic Pept 169 pg/mL (0-125); Osmolality Calculated 269 mOsm/kg (285-295); Potassium 3.3 mmol/L (3.5-5.1); Sodium 130 mmol/L (136-145); Total Bilirubin 0.6 mg/dL (0.15-1.2); Total Protein 7.2 g/dL (6.6-8.7)
--- NOTE | 2024-05-22 15:30 | CTR_ITS ---
PROCEDURE INFORMATION: Exam: CTA Chest With Contrast Exam date and time: 05/22/2024 4:14 PM Age: 73 years old Clinical indication: Shortness of breath; Additional info: Chest pain, elevated ddimer TECHNIQUE: Imaging protocol: Computed tomographic angiography of the chest with contrast. Exam focused on the arteries. 3D rendering (Not supervised by radiologist): MIP and/or 3D reconstructed images were created by the technologist. Radiation optimization: All CT scans at this facility use at least one of these dose optimization techniques: automated exposure control; mA and/or kV adjustment per patient size (includes targeted exams where dose is matched to clinical indication); or iterative reconstruction. Contrast material: OMNI 350; Contrast volume: 59 ml; Contrast route: INTRAVENOUS (IV); COMPARISON: CR XR chest 1V portable [id number] 05/22/2024 2:42 PM RADIATION DOSE METRICS: Total DLP (mGy-cm): 231.41 FINDINGS: Pulmonary arteries: No filling defects in the pulmonary arteries to suggest pulmonary embolism. Aorta: No evidence for aortic aneurysm or aortic dissection. Other arteries: Minimal atherosclerotic changes in the visualized arteries. Lungs: Bronchial wall thickening and mucous plugging involving the bronchus intermedius, right middle lobe and right lower lobe bronchi, and segmental bronchi in the right middle and lower lobes and in left lingular and left lower lobe bronchi and segmental bronchi. Ground-glass opacities in the right upper lobe and reticulonodular interstitial thickening with extensive alveolar airspace disease and air bronchograms in the right lower lobe. Patchy ground-glass opacities and reticulonodular interstitial thickening diffusely in the left lung. Pleural spaces: No pneumothorax. No pleural effusion. Heart: No cardiomegaly. No pericardial effusion. Esophagus: The esophagus is unremarkable. Mediastinal space: No mediastinal hematoma. No pneumomediastinum. Lymph nodes: No lymphadenopathy. Intraperitoneal space: No acute abnormality in the visualized upper abdomen. Bones/joints: Degenerative changes in the spine and shoulders. Soft tissues: No acute abnormality in the extrathoracic soft tissues. CT/CT angio chest PE formerly [facility] [id number] IMPRESSION: 1. Bronchial wall thickening and mucous plugging involving the bronchus intermedius, right middle lobe and right lower lobe bronchi, and segmental bronchi in the right middle and lower lobes and in left lingular and left lower lobe bronchi and segmental bronchi. Ground-glass opacities in the right upper lobe and reticulonodular interstitial thickening with extensive alveolar airspace disease and air bronchograms in the right lower lobe. Patchy ground-glass opacities and reticulonodular interstitial thickening diffusely in the left lung. Findings are suspicious for pneumonia, including atypical organisms. Recommend followup chest imaging to insure resolution of these findings. Lungs: No pulmonary parenchymal nodules or masses. 2. No evidence for pulmonary embolism. 3. Incidental/nonacute findings are listed in the report.
[2024-05-22 15:34] LABS: Influenza A NEGATIVE (Negative); Influenza B NEGATIVE (Negative); Respiratory Syncytial Virus Ce NEGATIVE (Negative)
[2024-05-22] MEDS: sodium chloride 0.9% 1,000 ML 999 ML IV (15:38)
[2024-05-22] MEDS: levofloxacin-dextrose 5 % 750 MG/150 ML PREMIX 100 MG IV (15:38)
[2024-05-22 15:42] LABS: ABG PCO2 40.1 mmHg (35-45); ABG PH Result 7.53 (7.35-7.45); Alveolar-Arterial Oxygen Gradi 23.9 mmHg (5-10); Arterial Blood Gas Hematocrit 41.6 % (37-47); Base Excess ABG 9.6 mmol/L (-2.0-2.0); Blood Gas Allen Test Pos; Blood Gas Operator Identificat glc; Blood Gas Sample Site Radial, left; Blood Gas Sample Type Arterial; HCO3 ABG 33.2 mmol/L (22-26); HGB O2 Sat 89.7 % (95-100); Ionized Calcium Level - ABG 1.1 mmol/L (1.1-1.4); Methemoglobin 0.2 % (0.4-1.5); Oxygen Device NC; Oxygen Saturation ABG 90.8; PO2 ABG 53.5 mmHg (80.0-100.0); PO2 FiO2 Ratio Arterial Blood 133; Total Hemoglobin 13.6 g/dL (12-16)
[2024-05-22 15:47] LABS: SARS-CoV-2 PCR Positive (Negative)
[2024-05-22] MEDS: iohexol 350 mg/mL 500 mL Btl (per mL) IV (16:20)
--- NOTE | 2024-05-22 16:30 | ECG_ITS ---
[facility]: 2024-05-22 Pat Name: Jade Hugo Department: Room: Gender: Female Manager Diesel: : [id number] Requested By: uRby Najera Order Number: [id number] Mayi MD: Monty Gonzalez M.D. Measurements Intervals [place] Rate: 110 P: 151 WA: 151 QRS: 114 QRSD: 90 T: 157 QT: 262 QTc: 355 Interpretive Statements SINUS TACHYCARDIA ARM LEADS REVERSED [INVERTED P AND QRS IN I] Non diagnostic T wave changes ABNORMAL RHYTHM ECG Compared to ECG 05/22/2024 15:12:43 T-wave abnormality no longer present Electronically Signed On 05-23-2024 13:17:26 CDT by Monty Gonzalez M.D. [email or web address]
[2024-05-22 17:19] LABS: Troponin 5 2HR 10.62 ng/L (0-10); Troponin 5 2HR Delta 1.62 ABS# (0-10)
[2024-05-22 20:08] LABS: C Reactive Protein 329.6 mg/L (0.0-4.9)
--- NOTE | 2024-05-22 20:16 | P.HP_ITS ---
Providers/Chief Complaint 2 Admitting Physician: Juan Wagner MD Primary Care Provider: [place] Vela MD Chief Complaint: sent by urgent care poss covid History of Present Illness Jade Hugo is a 73 year old female recent travel back from [place] after 2 weeks there with Jeff who is at bedside. They both developed sickness around the fifth with subjective fevers, muscle aches cough both of them were quite sick on the and but he rapidly improved. Patient with no known sick person exposures beyond her who developed illness around the same time. Patient had clear sputum then yellow and now green. Last 3 nights she has been unable to sleep awakening short of breath Seen in the clinic today she had requirement for 4 L oxygen. She was referred for admission but directed through the emergency department for further workup which included a CTA showing no pulmonary emboli but did showed right middle lobe mucous plugging and pneumonia. Patient states she has had pneumonia 3 times total once with COVID in March 2019. Patient is agreeable to intubation if needed and this was discussed with patient and Review of Systems 2 Narrative: General positive for fevers subjective not measured ENT reports some earache mild Cardiovascular no chest pain Respiratory positive for shortness of breath coughing productive of yellow and green phlegm GI positive for nausea loss of appetite no abdominal pain diarrhea constipation no dysuria or hematuria urine is dark and less then normal amount Musculoskeletal positive for myalgias diffuse Neuro no confusion Medications/Allergies Home Medications ?Medication ?Instructions ?Recorded ?Confirmed ?Last Taken ?Type multivitamin 1 tab PO DAILY 07/23/2205/1205/21/24 History acetaminophen 325 mg capsule 325 mg PO QID PRN Fever O r Pain 09/07/22 05/22/24 Unknown History (Tylenol) guaifenesin 1,200 mg tablet, 1,200 mg PO BID #60 tabs 05/22/24 05/22/24 Unknown Rx extended release 12 hr (Mucinex) Allergies Allergy/AdvReac Type Severity Reaction Status Date / Time celecoxib (From Celebrex) Allergy Intermediate rash Verified 05/22/24 12:20 Sulfa (Sulfonamide Allergy ALGY-Rash Verified 05/22/24 14:57 Antibiotics) PFSH Acute 2 PFSH: Medical History 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 Not sure of cause. Dr. Joya at [facility] Osteoarthritis of knees, bilateral Diverticulosis Hemorrhoids Acute appendicitis Condition resolved Tremor Surgical History History of appendectomy History of hemorrhoidectomy History of hysterectomy 2016 History of arthroscopic knee surgery bilateral knee by Dr. Bowers Family History Grandfather Hypertension Maternal Father Cancer lung Mother Hypertension Thyroid disease Denies family history of Diabetes CAD (coronary artery disease) Hyperlipidemia Chronic kidney disease (CKD) Bleeding disorder Stroke Social History (Updated 05/22/24 @ 20:27 by Juan Wagner MD) Smoking and tobacco/nicotine status: never used tobacco/nicotine Quit status (tobacco/nicotine): has quit using Year quit tobacco: 1977 Alcohol intake: current Substance/Drug Use: never Additional social history: 2 glasses of wine a week Lives independently: Yes Household members: spouse Marital status: Vitals/I&O/Wt Last Vital Signs Temp 99 F 05/22/24 14:16 Pulse 114 H 05/22/24 20:12 Resp 18 05/22/24 14:16 BP 132/64 05/22/24 20:12 Pulse Ox 92 05/22/24 20:12 O2 Del Method Nasal Cannula 05/22/24 18:42 O2 Flow Rate 4 05/22/24 18:42 05/22/24 05/22/24 05/22/24 06:59 14:59 22:59 Intake Total 1150 / 1150 Balance 1150 / 1150 Weight last 48 hrs Weight 65.771 kg Physical Exam 2 Narrative: General well-developed well-nourished female in no acute cardiopulmonary distress she is on 6 L of oxygen and has occasional moist sounding cough nonproductive Hearing intact Neck no masses CV regular rate and rhythm Lungs scattered rhonchi anteriorly with deep breaths she has coarse rhonchi right lower lung field other lung frye clear Abdomen positive bowel sounds soft nontender Calves no tenderness or asymmetry no pretibial edema Mood and affect normal Patient is good historian Data 05/22/24 14:42 05/22/24 14:42 Micro: Microbiology 05/22/24 14:38 Blood Culture - Preliminary Blood SPECIMEN COLLECTED 05/22/24 14:42 Blood Culture - Preliminary Blood SPECIMEN COLLECTED A&P Assessment and plan (1) COVID-19: Patient has moderate O2 requirement at 6 L. She will be started on remdesivir and Decadron. Lovenox for DVT prophylaxis at 40 mg daily Start incentive spirometry. Monitor for progress and patient would be agreeable to intubation if needed to survive (2) Pneumonia: Due to the green phlegm and prolonged illness we will continue with Levaquin 500 mg daily (3) Hypoxemia: Continue with oxygen support (4) Dystonic tremor: Stable patient states she sees a neurologist to recommended against beta- blockers and brain surgery. He recommends only Botox injections but she has had those already before. Currently she is stable Plan Admit to the hospital with standard care for COVID including remdesivir, Decadron and Lovenox. Recheck C-reactive protein and dimer in 2 days PDMP PDMP Reviewed: Not Reviewed Attestations 2 Medical Necessity Statement*: Patient will require hospitalization for steroids and remdesivir IV that is expected to cross 2 midnights Time Spent in Patient Care: 75 minutes spent in evaluation coronatio n care for this patient today Coding Level of Care Code 48309 Diagnoses COVID-19 U07.1 Pneumonia J18.9 Hypoxemia R09.02 Dystonic tremor G25.2
[2024-05-22 21:15] LABS: Troponin 5 6HR 12.27 ng/L (0-10); Troponin 5 6HR Delta 3.27 ng/L (0-12)
[2024-05-22] MEDS: enoxaparin 40 mg/0.4 mL Syringe SUBCUT (21:25)
[2024-05-22] MEDS: sodium chloride 0.9% 1,000 ML 125 ML IV (21:51)
[2024-05-22] MEDS: remdesivir 200 MG in sodium chloride 0.9% (100 ml) 60 ML 100 MG IV (21:51)
[2024-05-22] MEDS: dexamethasone 10 mg/mL INJ 6 MG PO (21:52)
[2024-05-22] MEDS: acetaminophen 325 mg Tablet PO (22:18)
[2024-05-23] VITALS (8 sets, daily range): BP systolic 110–126; BP diastolic 53–68; PULSE 84–93; RESP 16–20; TEMP 36.3–37.3; O2SAT 90–96
[2024-05-23 03:59] LABS: Basophils % 0.1 %; Eosinophils % 0.1 %; Hematocrit 36.2 % (36-47); Lymphocytes # 0.9 10^3/uL (0.8-4.8); Lymphocytes % 6.6 %; Mean Corpuscular HGB Conc 33.7 g/dL (30-55); Mean Corpuscular Hemoglobin 29.2 pg (27-33); Mean Corpuscular Volume 86.6 fl (85-98); Mean Platelet Volume 10.9 fL (7.4-10.4); Neutrophils # 11.01 10^3/uL (1.8-7.7); Neutrophils % 84.3 %; Nucleated Red Blood Cells % 0 %; Platelet Count 219 10^3/cmm (157-399); Red Blood Count 4.18 10^6/uL (3.85-5.65); Red Cell Distribution Width 13.2 % (12.1-15.1); White Blood Count 13.05 10^3/uL (3.29-11.43)
[2024-05-23 04:15] LABS: Anion Gap 14.1 (5-19); Blood Urea Nitrogen 5 mg/dL (8-23); Calcium 8.5 mg/dL (8.5-10.5); Carbon Dioxide 29 mmol/L (22-29); Chloride 97 mmol/L (98-107); Creatinine Clr Calc Pharmacy 65.6224; Glucose 165 mg/dL (65-115); Osmolality Calculated 285 mOsm/kg (285-295); Potassium 3.1 mmol/L (3.5-5.1); Sodium 137 mmol/L (136-145)
[2024-05-23] MEDS: guaiFENesin 100 mg/5 mL UDC 10 mL 200 MG PO ×2 (04:44→20:47)
[2024-05-23] MEDS: sodium chloride 0.9% 1,000 ML 125 ML IV (05:40)
[2024-05-23 08:59] LABS: Lactate Dehydrogenase 255 U/L (135-214)
[2024-05-23] MEDS: potassium chloride ER 20 mEq Tablet 40 MEQ PO (09:56)
[2024-05-23] MEDS: guaiFENesin 600 mg Tablet 1200 MG PO ×2 (09:56→17:29)
[2024-05-23] MEDS: famotidine 20 mg Tablet PO ×2 (09:57→17:29)
[2024-05-23] MEDS: AZITHROMYCIN ADD-Vantage 500 MG in 0.9% NaCl ADD-Vantage 250 ML 250 MG IV (09:57)
[2024-05-23] MEDS: multivitamin therapeutic Tablet 1 TAB PO (09:57)
[2024-05-23] MEDS: cefTRIAXone 1,000 mg SDV 1000 MG IVP (09:57)
--- NOTE | 2024-05-23 11:25 | P.PN_ITS ---
Subjective 2 Subjective: Patient was seen this morning, she does report that she feels better, but continues to have a productive cough, no nausea, no vomiting, no chest pain, palpitations, no lightheadedness, no dizziness Vitals/I&O/Wt Last Vital Signs Temp 97.5 F L 05/23/24 07:50 Pulse 84 05/23/24 08:50 Resp 18 05/23/24 08:50 BP 126/65 05/23/24 07:50 Pulse Ox 96 05/23/24 08:50 O2 Del Method Nasal Cannula 05/23/24 08:50 O2 Flow Rate 4 05/23/24 10:20 05/22/24 05/23/24 05/23/24 22:59 06:59 14:59 Intake Total 1150 / 1150 1077.083 / 2227.083 810.833 / 810.833 Balance 1150 / 1150 1077.083 / 2227.083 810.833 / 810.833 Weight last 48 hrs Weight 67.222 kg Weight 68.719 kg Weight 65.771 kg Physical Exam 2 Const: COMMON NORMALS: no acute distress and patient oriented x3 Resp: COMMON NORMALS: normal respiratory effort, No retractions and No use of accessory muscles AUSCULTATION: crackles and wheezes Cardio: COMMON NORMALS: regular rate, regular rhythm, S1 normal heart sound present and S2 normal heart sound present RATE: regular rate RHYTHM: r egular rhythm HEART SOUNDS: S1 normal heart sound present and S2 normal heart sound present GI: COMMON NORMALS: Normal to inspection, nondistended, normoactive bowel sounds present and non-tender Extremity: COMMON NORMALS: no pedal edema Neuro: COMMON NORMALS: patient oriented x3 Psych: COMMON NORMALS: mental status grossly normal Data 05/23/24 03:28 05/23/24 03:28 Micro: Microbiology 05/22/24 14:38 Blood Culture - Preliminary Blood SPECIMEN COLLECTED 05/22/24 14:42 Blood Culture - Preliminary Blood SPECIMEN COLLECTED A&P Assessment and plan (1) COVID-19: (2) Pneumonia: (3) Hypoxemia: (4) Dystonic tremor: Stable patient states she sees a neurologist to recommended against beta- blockers and brain surgery. He recommends only Botox injections but she has had those already before. Currently she is stable (5) Acute hypoxic respiratory failure: Plan Acute hypoxic respiratory failure - Secondary bacterial pneumonia - COVID-[address]/CT angio chest PE protcl [id number] IMPRESSION: 1. Bronchial wall thickening and mucous plugging involving the bronchus intermedius, right middle lobe and right lower lobe bronchi, and segmental bronchi in the right middle and lower lobes and in left lingular and left lower lobe bronchi and segmental bronchi. Ground-glass opacities in the right upper lobe and reticulonodular interstitial thickening with extensive alveolar airspace disease and air bronchograms in the right lower lobe. Patchy ground-glass opacities and reticulonodular interstitial thickening diffusely in the left lung. Findings are suspicious for pneumonia, including atypical organisms. Recommend followup chest imaging to insure resolution of these findings. Lungs: No pulmonary parenchymal nodules or masses. 2. No evidence for pulmonary embolism. 3. Incidental/nonacute findings are listed in the report. Plan - Rocephin - Azithromycin - Decadron - Remdesivir -Sputum cultures - Monitor status closely - Lovenox for DVT prophylaxis - Full code PDMP PDMP Reviewed: Not Reviewed Attestations 2 Medical Necessity Statement*: Patient has hospitalization for acute hypoxic respiratory failure secondary bacterial pneumonia, COVID-19 Diagnoses COVID-19 U07.1 Pneumonia J18.9 Hypoxemia R09.02 Dystonic tremor G25.2 Acute hypoxic respiratory failure J96.01
[2024-05-23] MEDS: remdesivir 100 MG in sodium chloride 0.9% (100 ml) 80 ML IV (20:30)
[2024-05-23] MEDS: enoxaparin 40 mg/0.4 mL Syringe SUBCUT (20:31)
[2024-05-23] MEDS: MELATONIN 3 MG TABLET PO (20:32)
[2024-05-23] MEDS: dexamethasone 10 mg/mL INJ 6 MG IVP (20:32)
[2024-05-23] MEDS: sodium chloride 0.9% 1,000 ML 50 ML IV (21:26)
[2024-05-24] VITALS (7 sets, daily range): BP systolic 106–122; BP diastolic 54–65; PULSE 73–90; RESP 14–20; TEMP 36.1–36.7; O2SAT 90–94
[2024-05-24 04:03] LABS: Basophils # 0.1 10^3/uL (0.0-0.1); Basophils % 0.4 %; Hematocrit 33.7 % (36-47); Lymphocytes # 1.2 10^3/uL (0.8-4.8); Lymphocytes % 7.8 %; Mean Corpuscular HGB Conc 33.2 g/dL (30-55); Mean Corpuscular Hemoglobin 29.4 pg (27-33); Mean Corpuscular Volume 88.5 fl (85-98); Mean Platelet Volume 10.8 fL (7.4-10.4); Monocytes # 0.9 10^3/uL (0.2-0.9); Monocytes % 5.6 %; Neutrophils # 12.84 10^3/uL (1.8-7.7); Nucleated Red Blood Cells % 0 %; Platelet Count 306 10^3/cmm (157-399); Red Blood Count 3.81 10^6/uL (3.85-5.65); Red Cell Distribution Width 13.4 % (12.1-15.1); White Blood Count 15.27 10^3/uL (3.29-11.43)
[2024-05-24 04:29] LABS: NT Pro B Type Natriuretic Pept 832 pg/mL (0-125); Procalcitonin 0.29 ng/mL (0-0.5)
[2024-05-24 04:32] LABS: Alanine Aminotransferase 32 U/L (0-33); Albumin Level 2.9 g/dL (3.5-5.2); Alkaline Phosphatase 96 U/L (35-105); Anion Gap 13.6 (5-19); Aspartate Amino Transferase 35 U/L (0-32); Blood Urea Nitrogen 14 mg/dL (8-23); C Reactive Protein 189.5 mg/L (0.0-4.9); Calcium 8.4 mg/dL (8.5-10.5); Carbon Dioxide 27 mmol/L (22-29); Chloride 102 mmol/L (98-107); Creatinine Clr Calc Pharmacy 65.7519; Globulin 2.4 g/dL (1.3-4.6); Glucose 164 mg/dL (65-115); Magnesium 2.2 mg/dL (1.7-2.3); Osmolality Calculated 292 mOsm/kg (285-295); Phosphorus 3.6 mg/dL (2.5-4.5); Potassium 3.6 mmol/L (3.5-5.1); Sodium 139 mmol/L (136-145); Total Bilirubin 0.2 mg/dL (0.15-1.2); Total Protein 5.3 g/dL (6.6-8.7)
[2024-05-24] MEDS: guaiFENesin 600 mg Tablet 1200 MG PO ×2 (08:56→19:18)
[2024-05-24] MEDS: famotidine 20 mg Tablet PO ×2 (08:56→19:18)
[2024-05-24] MEDS: cefTRIAXone 1,000 mg SDV 1000 MG IVP (08:56)
[2024-05-24] MEDS: multivitamin therapeutic Tablet 1 TAB PO (08:56)
[2024-05-24] MEDS: AZITHROMYCIN ADD-Vantage 500 MG in 0.9% NaCl ADD-Vantage 250 ML 250 MG IV (08:57)
--- NOTE | 2024-05-24 14:09 | P.PN_ITS ---
Subjective 2 Subjective: Patient was seen this morning, she denies any fevers, no chills, continues to have a complaint of productive cough but overall significant improved, does report shortness of breath with exertion, Vitals/I&O/Wt Last Vital Signs Temp 96.9 F L 05/24/24 11:24 Pulse 90 05/24/24 11:24 Resp 20 H 05/24/24 11:24 BP 117/54 05/24/24 11:24 Pulse Ox 90 05/24/24 11:24 O2 Del Method Nasal Cannula 05/24/24 11:24 O2 Flow Rate 4 05/24/24 09:23 05/23/24 05/24/24 05/24/24 22:59 06:59 14:59 Intake Total 889.167 / 2190.000 730 / 730 Balance 889.167 / 2190.000 730 / 730 Weight last 48 hrs Weight 69.037 kg Weight 67.222 kg Weight 68.719 kg Weight 65.771 kg Physical Exam 2 Const: COMMON NORMALS: no acute distress and patient oriented x3 Resp: COMMON NORMALS: normal respiratory effort, No retractions, No use of accessory muscles and clear to auscultation bilaterally AUSCULTATION: clear to auscultation bilaterally Cardio: COMMON NORMALS: regular rate, regular rhythm, S1 normal heart sound present and S2 normal heart sound present RATE: regular rate RHYTHM: r egular rhythm HEART SOUNDS: S1 normal heart sound present and S2 normal heart sound present GI: COMMON NORMALS: Normal to inspection, nondistended, normoactive bowel sounds present and non-tender Extremity: COMMON NORMALS: no pedal edema Neuro: COMMON NORMALS: patient oriented x3 Psych: COMMON NORMALS: mental status grossly normal Data 05/24/24 03:52 05/24/24 03:52 Micro: Microbiology 05/23/24 10:10 Gram Stain - Final Sputum - Expectorated Sputum 05/22/24 14:38 Blood Culture - Preliminary Blood NEGATIVE TO DATE 05/22/24 14:42 Blood Culture - Preliminary Blood NEGATIVE TO DATE A&P Assessment and plan (1) COVID-19: (2) Pneumonia: (3) Hypoxemia: (4) Dystonic tremor: Stable patient states she sees a neurologist to recommended against beta- blockers and brain surgery. He recommends only Botox injections but she has had those already before. Currently she is stable (5) Acute hypoxic respiratory failure: Plan Acute hypoxic respiratory failure - Secondary bacterial pneumonia - COVID-[address]/CT angio chest PE protcl [id number] IMPRESSION: 1. Bronchial wall thickening and mucous plugging involving the bronchus intermedius, right middle lobe and right lower lobe bronchi, and segmental bronchi in the right middle and lower lobes and in left lingular and left lower lobe bronchi and segmental bronchi. Ground-glass opacities in the right upper lobe and reticulonodular interstitial thickening with extensive alveolar airspace disease and air bronchograms in the right lower lobe. Patchy ground-glass opacities and reticulonodular interstitial thickening diffusely in the left lung. Findings are suspicious for pneumonia, including atypical organisms. Recommend followup chest imaging to insure resolution of these findings. Lungs: No pulmonary parenchymal nodules or masses. 2. No evidence for pulmonary embolism. 3. Incidental/nonacute findings are listed in the report. Plan - Rocephin - Azithromycin - Decadron - Remdesivir -Sputum cultures so far no growth -LDH elevated 255, haptoglobin 374, beta glucan ordered, Aspergillus ordered - Monitor status closely - Lovenox for DVT prophylaxis - Full code PDMP PDMP Reviewed: Not Reviewed Attestations 2 Medical Necessity Statement*: Patient requires hospitalization for acute hypoxic respiratory failure secondary to second bacterial pneumonia, COVID-19 Diagnoses COVID-19 U07.1 Pneumonia J18.9 Hypoxemia R09.02 Dystonic tremor G25.2 Acute hypoxic respiratory failure J96.01
[2024-05-24] MEDS: sodium chloride 0.9% 1,000 ML 50 ML IV (19:19)
[2024-05-24] MEDS: dexamethasone 10 mg/mL INJ 6 MG IVP (20:35)
[2024-05-24] MEDS: MELATONIN 3 MG TABLET PO (20:35)
[2024-05-24] MEDS: enoxaparin 40 mg/0.4 mL Syringe SUBCUT (20:35)
[2024-05-24] MEDS: remdesivir 100 MG in sodium chloride 0.9% (100 ml) 80 ML IV (20:48)
[2024-05-25] VITALS (12 sets, daily range): BP systolic 119–136; BP diastolic 65–88; PULSE 72–84; RESP 14–18; TEMP 36.5–36.7; O2SAT 91–95; BMI 23.9
--- NOTE | 2024-05-25 00:24 | PC.NURSE ---
PHYSICIAN NOTIFICATION: Patient stated she takes 5mg melatonin at home. Current order is 3mg HS. Patient requested if she could have another 3mg dose as she is not able to rest. Physician notified and ordered to change dose from 3mg to 6mg HS.
[2024-05-25 04:44] LABS: Basophils # 0.1 10^3/uL (0.0-0.1); Basophils % 0.4 %; Hematocrit 35.1 % (36-47); Lymphocytes # 1.6 10^3/uL (0.8-4.8); Lymphocytes % 10.6 %; Mean Corpuscular HGB Conc 32.5 g/dL (30-55); Mean Corpuscular Hemoglobin 28.9 pg (27-33); Mean Corpuscular Volume 88.9 fl (85-98); Monocytes # 0.9 10^3/uL (0.2-0.9); Monocytes % 6.2 %; Neutrophils # 11.57 10^3/uL (1.8-7.7); Neutrophils % 76.7 %; Nucleated Red Blood Cells % 0 %; Platelet Count 324 10^3/cmm (157-399); Red Blood Count 3.95 10^6/uL (3.85-5.65); Red Cell Distribution Width 13.6 % (12.1-15.1); White Blood Count 15.08 10^3/uL (3.29-11.43)
[2024-05-25 05:11] LABS: Alanine Aminotransferase 29 U/L (0-33); Alkaline Phosphatase 99 U/L (35-105); Anion Gap 14.1 (5-19); Aspartate Amino Transferase 28 U/L (0-32); Blood Urea Nitrogen 14 mg/dL (8-23); C Reactive Protein 92.5 mg/L (0.0-4.9); Calcium 8.1 mg/dL (8.5-10.5); Carbon Dioxide 28 mmol/L (22-29); Chloride 103 mmol/L (98-107); Creatinine Clr Calc Pharmacy 65.7519; Globulin 2.3 g/dL (1.3-4.6); Glucose 142 mg/dL (65-115); Magnesium 2.1 mg/dL (1.7-2.3); Osmolality Calculated 295 mOsm/kg (285-295); Phosphorus 3.8 mg/dL (2.5-4.5); Potassium 4.1 mmol/L (3.5-5.1); Sodium 141 mmol/L (136-145); Total Bilirubin 0.2 mg/dL (0.15-1.2); Total Protein 5.3 g/dL (6.6-8.7)
[2024-05-25 05:13] LABS: NT Pro B Type Natriuretic Pept 1218 pg/mL (0-125); Procalcitonin 0.15 ng/mL (0-0.5)
[2024-05-25 05:26] LABS: Slide Review Slide Review Perform
[2024-05-25] MEDS: guaiFENesin 600 mg Tablet 1200 MG PO ×2 (09:21→17:05)
[2024-05-25] MEDS: famotidine 20 mg Tablet PO ×2 (09:21→17:05)
[2024-05-25] MEDS: AZITHROMYCIN ADD-Vantage 500 MG in 0.9% NaCl ADD-Vantage 250 ML 250 MG IV (09:21)
[2024-05-25] MEDS: multivitamin therapeutic Tablet 1 TAB PO (09:21)
[2024-05-25] MEDS: cefTRIAXone 1,000 mg SDV 1000 MG IVP (09:21)
--- NOTE | 2024-05-25 11:47 | PC.SOCIAL ---
IMM Update pg 2 of IMM updated and reviewed w/ patient. Copy provided and copy dated, initialed and placed in chart.
[2024-05-25 13:15] LABS: Estmated Average Glucose 137; Hemoglobin A1C 6.4 % (4.0-6.0)
[2024-05-25 14:03] LABS: Iron 62 ug/dL (37-145); Percent Saturation 33.8 % (20-50); Thyroid Stimulating Hormone 0.71 uIU/mL (0.27-4.20); Total Iron Binding Capacity 183 mcg/dl; Unsaturated Iron Binding 121 ug/dL (112-347); Vitamin B12 1865 pg/mL (232-1245)
[2024-05-25 15:02] LABS: MRSA PCR OZH (swab) NOT DETECTED (Not Detecte)
[2024-05-25] MEDS: ipratropium-albuterol 3 mL Neb INHALATION ×2 (15:25→20:05)
--- NOTE | 2024-05-25 16:40 | P.PN_ITS ---
Subjective 2 Subjective: Hospital course, labs appreciated. Currently on 3 L. States feeling better. Patient denies any nausea, vomiting, headache. Vitals/I&O/Wt Last Vital Signs Temp 97.7 F 05/25/24 16:00 Pulse 79 05/25/24 16:00 Resp 16 05/25/24 16:00 BP 121/76 05/25/24 16:00 Pulse Ox 93 05/25/24 16:00 O2 Del Method Nasal Cannula 05/25/24 16:00 O2 Flow Rate 3 05/25/24 15:25 05/25/24 05/25/24 05/25/24 06:59 14:59 22:59 Intake Total 400 / 2470 970 / 970 Balance 400 / 2470 970 / 970 Weight last 48 hrs Weight 69.4 kg Weight 69.037 kg Physical Exam 2 Const: COMMON NORMALS: no acute distress and patient oriented x3 Resp: COMMON NORMALS: normal respiratory effort, No retractions and No use of accessory muscles; negative for clear to auscultation bilaterally AUSCULTATION: not clear to auscultation bilaterally, crackles and wheezes Cardio: COMMON NORMALS: regular rate, regular rhythm, S1 normal heart sound present and S2 normal heart sound present RATE: regular rate RHYTHM: r egular rhythm HEART SOUNDS: S1 normal heart sound present and S2 normal heart sound present GI: COMMON NORMALS: Normal to inspection, nondistended, normoactive bowel sounds present and non-tender Extremity: COMMON NORMALS: no pedal edema Neuro: COMMON NORMALS: patient oriented x3 Psych: COMMON NORMALS: mental status grossly normal Data 05/25/24 04:02 05/25/24 04:02 Micro: Microbiology 05/23/24 10:10 Gram Stain - Final Sputum - Expectorated Sputum Sputum Culture - Final A&P Assessment and plan (1) COVID-19: Hypoxia secondary to COVID-19 pneumonia: Moderate disease. Oxygen supplementation keeping saturation over 88%. Dexamethasone 6 mg daily. Remdesivir to finish a 5-day course. DuoNeb every 6 hour, budesonide twice daily Pulmonary toilet with incentive spirometry flutter valve. We will monitor inflammatory markers including CRP every 48 hours. (2) Pneumonia: Follow-up blood culture. Check sputum culture. Check MRSA swab. For now continue with IV ceftriaxone and oral azithromycin. Plan to finish a 3- day course of azithromycin. If MRSA swab is positive will add vancomycin. (3) Hypoxemia: (4) Dystonic tremor: Stable patient states she sees a neurologist to recommended against beta- blockers and brain surgery. He recommends only Botox injections but she has had those already before. Currently she is stable (5) Acute hypoxic respiratory failure: Plan Full code Regular diet Famotidine for PUD prophylaxis Lovenox for DVT prophylaxis PDMP PDMP Reviewed: Not Reviewed Attestations 2 Medical Necessity Statement*: Requires further hospitalization for management of acute hypoxic respiratory failure in setting of COVID-19, superadded bacterial infection Diagnoses COVID-19 U07.1 Pneumonia J18.9 Hypoxemia R09.02 Dystonic tremor G25.2 Acute hypoxic respiratory failure J96.01
[2024-05-25] MEDS: budesonide 0.5 mg/2 mL Neb INHALATION (20:05)
[2024-05-25] MEDS: dexamethasone 10 mg/mL INJ 6 MG IVP (20:21)
[2024-05-25] MEDS: remdesivir 100 MG in sodium chloride 0.9% (100 ml) 80 ML IV (20:22)
[2024-05-25] MEDS: enoxaparin 40 mg/0.4 mL Syringe SUBCUT (20:22)
[2024-05-25] MEDS: MELATONIN 3 MG TABLET 6 MG PO (20:22)
[2024-05-26] VITALS (14 sets, daily range): BP systolic 93–131; BP diastolic 53–74; PULSE 75–91; RESP 15–21; TEMP 36.4–36.8; O2SAT 91–96
[2024-05-26] MEDS: ipratropium-albuterol 3 mL Neb INHALATION ×4 (02:46→21:21)
[2024-05-26 06:02] LABS: Hematocrit 36.3 % (36-47); Mean Corpuscular HGB Conc 33.1 g/dL (30-55); Mean Corpuscular Hemoglobin 29.1 pg (27-33); Mean Corpuscular Volume 87.9 fl (85-98); Mean Platelet Volume 10.8 fL (7.4-10.4); Platelet Count 320 10^3/cmm (157-399); Red Blood Count 4.13 10^6/uL (3.85-5.65); Red Cell Distribution Width 13.7 % (12.1-15.1); White Blood Count 14.36 10^3/uL (3.29-11.43)
[2024-05-26 06:30] LABS: Chol HDL Ratio 3.14 mg/dL (0.0-4.40); Cholesterol 116 mg/dL (0-200); HDL Cholesterol 37 mg/dL (60-100); LDL Cholesterol Calculated 65 mg/dL (50-129); Triglycerides 68 mg/dL (0-150); VLDL Cholestrol Calculation 14 mg/dL (0-30)
[2024-05-26 06:46] LABS: Folate Level 18.7 ng/mL (4.8-37.3)
[2024-05-26 06:47] LABS: Alanine Aminotransferase 33 U/L (0-33); Albumin Level 2.9 g/dL (3.5-5.2); Alkaline Phosphatase 87 U/L (35-105); Anion Gap 17.2 (5-19); Aspartate Amino Transferase 29 U/L (0-32); Blood Urea Nitrogen 12 mg/dL (8-23); Calcium 8.3 mg/dL (8.5-10.5); Carbon Dioxide 27 mmol/L (22-29); Chloride 98 mmol/L (98-107); Creatinine Clr Calc Pharmacy 65.8998; Globulin 2.9 g/dL (1.3-4.6); Glucose 154 mg/dL (65-115); Magnesium 2.1 mg/dL (1.7-2.3); Osmolality Calculated 289 mOsm/kg (285-295); Phosphorus 4.5 mg/dL (2.5-4.5); Potassium 4.2 mmol/L (3.5-5.1); Sodium 138 mmol/L (136-145); Total Bilirubin 0.2 mg/dL (0.15-1.2); Total Protein 5.8 g/dL (6.6-8.7)
[2024-05-26 07:29] LABS: Slide Review Slide Review Perform
[2024-05-26 07:30] LABS: Absolute Neutrophil 11.1 10^3/cmm (1.4-6.5); Absolute Segmented Neutrophil 10.9 10/cmm (1.6-7.1); Band Neutrophils Absolute 0.1 10^3/cmm (0.0-1.2); Eosinophils 0 %; Lymphocytes 14 %; Platelet Estimate Normal (Normal); Segmented Neutrophils 76 %; Total Cells Counted 100 (0-100)
[2024-05-26] MEDS: multivitamin therapeutic Tablet 1 TAB PO (08:10)
[2024-05-26] MEDS: cefTRIAXone 1,000 mg SDV 1000 MG IVP (08:11)
[2024-05-26] MEDS: famotidine 20 mg Tablet PO ×2 (08:11→17:00)
[2024-05-26] MEDS: guaiFENesin 600 mg Tablet 1200 MG PO ×2 (08:11→17:00)
[2024-05-26] MEDS: AZITHROMYCIN ADD-Vantage 500 MG in 0.9% NaCl ADD-Vantage 250 ML 250 MG IV (08:19)
[2024-05-26] MEDS: budesonide 0.5 mg/2 mL Neb INHALATION ×2 (08:21→21:21)
--- NOTE | 2024-05-26 12:44 | P.PN_ITS ---
Subjective 2 Subjective: No events overnight. Patient states she is feeling better. Down to 2 L of oxygen supplementation. Denies any nausea vomiting, headache. Vitals/I&O/Wt Last Vital Signs Temp 98.0 F 05/26/24 12:00 Pulse 75 05/26/24 12:00 Resp 17 05/26/24 12:00 BP 113/67 05/26/24 12:00 Pulse Ox 93 05/26/24 12:00 O2 Del Method Nasal Cannula 05/26/24 12:00 O2 Flow Rate 2 05/26/24 08:21 05/25/24 05/26/24 05/26/24 22:59 06:59 14:59 Intake Total 1460 / 2430 0 / 2430 490 / 490 Balance 1460 / 2430 0 / 2430 490 / 490 Weight last 48 hrs Weight 69.4 kg Physical Exam 2 Const: COMMON NORMALS: no acute distress and patient oriented x3 Resp: COMMON NORMALS: normal respiratory effort, No retractions and No use of accessory muscles; negative for clear to auscultation bilaterally AUSCULTATION: not clear to auscultation bilaterally, crackles and wheezes Cardio: COMMON NORMALS: regular rate, regular rhythm, S1 normal heart sound present and S2 normal heart sound present RATE: regular rate RHYTHM: r egular rhythm HEART SOUNDS: S1 normal heart sound present and S2 normal heart sound present GI: COMMON NORMALS: Normal to inspection, nondistended, normoactive bowel sounds present and non-tender Extremity: COMMON NORMALS: no pedal edema Neuro: COMMON NORMALS: patient oriented x3 Psych: COMMON NORMALS: mental status grossly normal Data 05/26/24 05:05 05/26/24 05:05 Micro: Microbiology 05/25/24 13:15 Gram Stain - Final Sputum - Expectorated Sputum Sputum Culture - Preliminary 05/23/24 10:10 Gram Stain - Final Sputum - Expectorated Sputum Sputum Culture - Final A&P Assessment and plan (1) COVID-19: Hypoxia secondary to COVID-19 pneumonia: Moderate disease. Oxygen supplementation keeping saturation over 88%. Dexamethasone 6 mg daily. Remdesivir to finish a 5-day course. DuoNeb every 6 hour, budesonide twice daily Pulmonary toilet with incentive spirometry flutter valve. We will monitor inflammatory markers including CRP every 48 hours. (2) Pneumonia: Follow-up blood culture. Check sputum culture. Check MRSA swab. For now continue with IV ceftriaxone and oral azithromycin. Plan to finish a 3- day course of azithromycin. If MRSA swab is positive will add vancomycin. (3) Hypoxemia: (4) Dystonic tremor: Stable patient states she sees a neurologist to recommended against beta- blockers and brain surgery. He recommends only Botox injections but she has had those already before. Currently she is stable (5) Acute hypoxic respiratory failure: Plan Full code Regular diet Famotidine for PUD prophylaxis Lovenox for DVT prophylaxis Plan for the day: Continue with IV remdesivir to finish a 5-day course. Continue with IV dexamethasone. Follow-up blood culture, sputum culture. Continue with treatment for community- acquired pneumonia with IV ceftriaxone and azithromycin. MRSA swab negative. Discontinue azithromycin after 3 days. Aggressive pulmonary toilet. Continue with nebulization treatment. Oxygen supplementation keeping saturation over 88%. PDMP PDMP Reviewed: Not Reviewed Attestations 2 Medical Necessity Statement*: Requested hospitalization for management of hypoxic respiratory failure in setting of COVID-19, superadded bacterial infection Diagnoses COVID-19 U07.1 Pneumonia J18.9 Hypoxemia R09.02 Dystonic tremor G25.2 Acute hypoxic respiratory failure J96.01
[2024-05-26] MEDS: lanolin oint 7 gm 1 APPLIC TOPICAL (15:47)
[2024-05-26] MEDS: MELATONIN 3 MG TABLET 6 MG PO (20:49)
[2024-05-26] MEDS: remdesivir 100 MG in sodium chloride 0.9% (100 ml) 80 ML IV (20:49)
[2024-05-26] MEDS: dexamethasone 10 mg/mL INJ 6 MG IVP (20:49)
[2024-05-26] MEDS: enoxaparin 40 mg/0.4 mL Syringe SUBCUT (20:50)
[2024-05-27] VITALS (7 sets, daily range): BP systolic 101–109; BP diastolic 52–64; PULSE 79–88; RESP 18–20; TEMP 36.4–36.6; O2SAT 91–97
[2024-05-27] MEDS: ipratropium-albuterol 3 mL Neb INHALATION ×2 (03:13→08:08)
[2024-05-27 05:15] LABS: Basophils # 0.1 10^3/uL (0.0-0.1); Basophils % 0.6 %; Eosinophils % 0.1 %; Hematocrit 38.5 % (36-47); Lymphocytes # 1.5 10^3/uL (0.8-4.8); Lymphocytes % 9.8 %; Mean Corpuscular HGB Conc 32.7 g/dL (30-55); Mean Corpuscular Hemoglobin 28.6 pg (27-33); Mean Corpuscular Volume 87.5 fl (85-98); Mean Platelet Volume 10.2 fL (7.4-10.4); Monocytes # 0.9 10^3/uL (0.2-0.9); Monocytes % 5.6 %; Neutrophils % 76.6 %; Nucleated Red Blood Cells % 0.2 %; Platelet Count 365 10^3/cmm (157-399); Red Cell Distribution Width 13.8 % (12.1-15.1); White Blood Count 15.26 10^3/uL (3.29-11.43)
[2024-05-27 05:34] LABS: Alanine Aminotransferase 30 U/L (0-33); Alkaline Phosphatase 81 U/L (35-105); Anion Gap 16.8 (5-19); Aspartate Amino Transferase 23 U/L (0-32); Blood Urea Nitrogen 12 mg/dL (8-23); Calcium 8.5 mg/dL (8.5-10.5); Carbon Dioxide 29 mmol/L (22-29); Chloride 97 mmol/L (98-107); Creatinine Clr Calc Pharmacy 63.8491; Glucose 158 mg/dL (65-115); Magnesium 2.1 mg/dL (1.7-2.3); Osmolality Calculated 289 mOsm/kg (285-295); Potassium 4.8 mmol/L (3.5-5.1); Sodium 138 mmol/L (136-145); Total Bilirubin 0.2 mg/dL (0.15-1.2)
[2024-05-27 05:47] LABS: Slide Review Slide Review Perform
[2024-05-27] MEDS: budesonide 0.5 mg/2 mL Neb INHALATION (08:08)
[2024-05-27] MEDS: multivitamin therapeutic Tablet 1 TAB PO (09:13)
[2024-05-27] MEDS: guaiFENesin 600 mg Tablet 1200 MG PO (09:13)
[2024-05-27] MEDS: cefTRIAXone 1,000 mg SDV 1000 MG IVP (09:14)
[2024-05-27] MEDS: famotidine 20 mg Tablet PO (09:14)
--- NOTE | 2024-05-27 10:07 | PC.SOCIAL ---
IMM Update pg 2 of IMM Updated and reviewed w/ patient. Copy provided and copy dated, initialed and placed in chart.
--- NOTE | 2024-05-27 10:49 | P.DS_ITS ---
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 Not sure of cause. Dr. Joya at [facility] (5) Acute hypoxic respiratory failure: Status: Acute Reason for Visit Reason for Visit: sent by urgent care poss covnv Brief History: History as per HPI: Jade Hugo is a 73 year old female recent travel back from [place] after 2 weeks there with Jeff who is at bedside. They both developed sickness around the fifth with subjective fevers, muscle aches cough both of them were quite sick on the and but he rapidly improved. Patient with no known sick person exposures beyond her who developed illness around the same time. Patient had clear sputum then yellow and now green. Last 3 nights she has been unable to sleep awakening short of breath Seen in the clinic today she had requirement for 4 L oxygen. She was referred for admission but directed through the emergency department for further workup which included a CTA showing no pulmonary emboli but did showed right middle lobe mucous plugging and pneumonia. Patient states she has had pneumonia 3 times total once with COVID in March 2019. Patient is agreeable to intubation if needed and this was discussed with patient and Hospital Course Hospital Course She was admitted to the hospital further evaluation and management of acute hypoxic respiratory failure in setting of COVID-19 and superadded bacterial infection. She was started on broad-spectrum antibiotics, treatment with remdesivir and dexamethasone along with inhalation treatment. She responded well to the treatment. She received remdesivir for overall 5 days. Home O2 evaluation was done prior to discharge and she did not require any oxygen. She is been discharged in hemodynamically stable condition with advised to continue taking dexamethasone for 7 more days, and elation treatment with Spiriva and Advair, along with oral antibiotics with Augmentin and Levaquin for 4 more days. She is to follow-up with her primary care provider within next 1 week. Physical Exam Const: COMMON NORMALS: no acute distress and patient oriented x3 Resp: COMMON NORMALS: normal respiratory effort, No retractions and No use of accessory muscles; negative for clear to auscultation bilaterally AUSCULTATION: not clear to auscultation bilaterally, crackles and wheezes Cardio: COMMON NORMALS: regular rate, regular rhythm, S1 normal heart sound present and S2 normal heart sound present RATE: regular rate RHYTHM: regular rhythm HEART SOUNDS: S1 normal heart sound present and S2 normal heart sound present GI: COMMON NORMALS: Normal to inspection, nondistended, normoactive bowel sounds present and non-tender Extremity: COMMON NORMALS: no pedal edema Neuro: COMMON NORMALS: patient oriented x3 Psych: COMMON NORMALS: mental status grossly normal Discharge Data Studies Completed and Pending Completed Studies During Hospitalization Category Date Time Status CTA chest [CT angio chest PE protcl [id number]] Stat Cat Scan 05/22/24 15:30 Completed XR chest 1V portable [id number] Stat Exams 05/22/24 14:30 Completed Pending at discharge Category Date Time Status 1-3 Beta D Glucan [Fungitell Glucan Assay (Blood)] Lab 05/23/24 05:28 Received Routine Aspergillus AG,EIA,Serum Stat Lab 05/23/24 05:28 Received Blood Culture Stat Lab 05/22/24 14:38 Results MAG [Magnesium] AM LABS Lab 05/28/24 04:00 Ordered Sputum Culture and Gram Stain Stat Lab 05/25/24 13:15 Results Radiology Impressions Chest X-Ray 05/22/24 14:30 IMPRESSION: 1. Infiltrate in the RIGHT lower lung zone suspicious for pneumonia. No change. Chest CTA 05/22/24 15:30 IMPRESSION: 1. Bronchial wall thickening and mucous plugging involving the bronchus intermedius, right middle lobe and right lower lobe bronchi, and segmental bronchi in the right middle and lower lobes and in left lingular and left lower lobe bronchi and segmental bronchi. Ground-glass opacities in the right upper lobe and reticulonodular interstitial thickening with extensive alveolar airspace disease and air bronchograms in the right lower lobe. Patchy ground-glass opacities and reticulonodular interstitial thickening diffusely in the left lung. Findings are suspicious for pneumonia, including atypical organisms. Recommend followup chest imaging to insure resolution of these findings. Lungs: No pulmonary parenchymal nodules or masses. 2. No evidence for pulmonary embolism. 3. Incidental/nonacute findings are listed in the report. Microbiology 05/25/24 13:15 Sputum - Expectorated Sputum Gram Stain - Final 05/25/24 13:15 Sputum - Expectorated Sputum Sputum Culture - Preliminary 05/23/24 10:10 Sputum - Expectorated Sputum Gram Stain - Final 05/23/24 10:10 Sputum - Expectorated Sputum Sputum Culture - Final 05/22/24 14:38 Blood Blood Culture - Preliminary NEGATIVE TO DATE 05/22/24 14:42 Blood Blood Culture - Preliminary NEGATIVE TO DATE Laboratory Results WBC 15.26 10^3/uL (3.29-11.43) H 05/27/24 05:05 RBC 4.40 10^6/uL (3.85-5.65) 05/27/24 05:05 Hgb 12.60 g/dL (11.27-16.99) 05/27/24 05:05 Hct 38.5 % (36-47) 05/27/24 05:05 MCV 87.5 fl (85-98) 05/27/24 05:05 MCH 28.6 pg (27-33) 05/27/24 05:05 MCHC 32.7 g/dL (30-55) 05/27/24 05:05 RDW 13.8 % (12.1-15.1) 05/27/24 05:05 Plt Count 365 10^3/cmm (157-399) 05/27/24 05:05 MPV 10.2 fL (7.4-10.4) 05/27/24 05:05 Neut % (Auto) 76.6 % 05/27/24 05:05 Lymph % (Auto) 9.8 % 05/27/24 05:05 Mcmullen % (Auto) 5.6 % 05/27/24 05:05 Eos % (Auto) 0.1 % 05/27/24 05:05 Baso % (Auto) 0.6 % 05/27/24 05:05 Neut # (Auto) 11.70 10^3/uL (1.8-7.7) H 05/27/24 05:05 Lymph # (Auto) 1.5 10^3/uL (0.8-4.8) 05/27/24 05:05 Mcmullen # (Auto) 0.9 10^3/uL (0.2-0.9) 05/27/24 05:05 Eos # (Auto) 0.0 10^3/uL (0.0-0.8) 05/27/24 05:05 Baso # (Auto) 0.1 10^3/uL (0.0-0.1) 05/27/24 05:05 Nucleated RBC % (auto) 0.2 % 05/27/24 05:05 Total Counted 100 (0-100) 05/26/24 05:05 Atypical Lymphs % 0.0 % (0-5) 05/26/24 05:05 Absolute Neutrophils 11.1 10^3/cmm (1.4-6.5) H 05/26/24 05:05 Segmented Neutrophils 76 % 05/26/24 05:05 Band Neutrophils 1.0 % 05/26/24 05:05 Absolute Lymphocytes 2.0 10^3/cmm (1.2-3.4) 05/26/24 05:05 Lymphocytes (Manual) 14 % 05/26/24 05:05 Monocytes (Manual) 7.0 % 05/26/24 05:05 Absolute Monocytes 1.0 10^3/cmm (0.1-0.6) H 05/26/24 05:05 Eosinophils (Manual) 0 % 05/26/24 05:05 Absolute Eosinophils 0.0 10^3/cmm (0.0-0.7) 05/26/24 05:05 Basophils (Manual) 0.0 % 05/26/24 05:05 Absolute Basophils 0.0 10^3/cmm (0.0-0.2) 05/26/24 05:05 Metamyelocytes 1.0 % 05/26/24 05:05 Myelocytes 1.0 % 05/26/24 05:05 Nucleated RBCs # 0.0 /100WBC 05/27/24 05:05 Platelet Estimate Normal (Normal) 05/26/24 05:05 Haptoglobin 374.0 mg/L (30-200) H 05/23/24 03:28 D-Dimer 2.23 ug/mLFEU (0-0.59) H 05/22/24 14:42 Specimen Type Arterial 05/22/24 15:30 Sample Site Radial, left 05/22/24 15:30 ABG pH 7.53 (7.35-7.45) H 05/22/24 15:30 ABG pCO2 40.1 mmHg (35-45) 05/22/24 15:30 ABG pO2 53.5 mmHg (80.0-100.0) L 05/22/24 15:30 ABG PO2/FiO2 Ratio 133 05/22/24 15:30 ABG HCO3 33.2 mmol/L (22-26) H 05/22/24 15:30 ABG O2 Saturation 90.8 05/22/24 15:30 ABG Base Excess 9.6 mmol/L (-2.0-2.0) H 05/22/24 15:30 Lew Test Pos 05/22/24 15:30 A-a O2 Gradient 23.9 mmHg (5-10) H 05/22/24 15:30 Hematocrit 41.6 % (37-47) 05/22/24 15:30 Hgb O2 Saturation 89.7 % (95-100) L 05/22/24 15:30 Carboxyhemoglobin 1.0 %THgb (0.4-20.1) 05/22/24 15:30 Methemoglobin 0.2 % (0.4-1.5) L 05/22/24 15:30 Total Hemoglobin 13.6 g/dL (12-16) 05/22/24 15:30 Sodium 132.0 mmol/L (131-143) 05/22/24 15:30 Potassium 3.0 mmol/L (3.5-5.0) L 05/22/24 15:30 Glucose 122.0 mg/dL (70-115) H 05/22/24 15:30 Ionized Calcium 1.1 mmol/L (1.1-1.4) 05/22/24 15:30 O2 Delivery Device Nc 05/22/24 15:30 O2 Liters/Min 5.0 % 05/22/24 15:30 FiO2 40.0 % 05/22/24 15:30 Billboard Erector Helper ID glc 05/22/24 15:30 Sodium 138 mmol/L (136-145) 05/27/24 05:05 Potassium 4.8 mmol/L (3.5-5.1) 05/27/24 05:05 Chloride 97 mmol/L (98-107) L 05/27/24 05:05 Carbon Dioxide 29 mmol/L (22-29) 05/27/24 05:05 Anion Gap 16.8 (5-19) 05/27/24 05:05 BUN 12 mg/dL (8-23) 05/27/24 05:05 Creatinine 0.6 mg/dL (0.5-0.9) 05/27/24 05:05 GFR Calculation Not Reportable 05/27/24 05:05 Glucose 158 mg/dL (65-115) H 05/27/24 05:05 Estimat Average Glucose 137 05/25/24 04:02 Hemoglobin A1c 6.4 % (4.0-6.0) H 05/25/24 04:02 Calculated Osmolality 289 mOsm/kg (285-295) 05/27/24 05:05 Lactic Acid 1.6 mmol/L (0.5-2.2) 05/22/24 14:42 Calcium 8.5 mg/dL (8.5-10.5) 05/27/24 05:05 Phosphorus 4.5 mg/dL (2.5-4.5) 05/26/24 05:05 Magnesium 2.1 mg/dL (1.7-2.3) 05/27/24 05:05 Iron 62 ug/dL (37-145) 05/25/24 04:02 TIBC 183 mcg/dl 05/25/24 04:02 % Saturation 33.8 % (20-50) 05/25/24 04:02 Unsat Iron Binding 121 ug/dL (112-347) 05/25/24 04:02 Total Bilirubin 0.2 mg/dL (0.15-1.2) 05/27/24 05:05 AST 23 U/L (0-32) 05/27/24 05:05 ALT 30 U/L (0-33) 05/27/24 05:05 Alkaline Phosphatase 81 U/L (35-105) 05/27/24 05:05 Lactate Dehydrogenase 255 U/L (135-214) H 05/23/24 03:28 Troponin T Baseline 9 ng/L (0-10) 05/22/24 14:42 Troponin T 120 Minute 10.62 ng/L (0-10) H 05/22/24 16:47 Delta Troponin T 1.62 ABS# (0-10) 05/22/24 16:47 Troponin T Hi Sens 6Hr 12.27 ng/L (0-10) H 05/22/24 20:41 Troponin T Hi Sens 6Hr Delta 3.27 ng/L (0-12) 05/22/24 20:41 C-Reactive Protein 92.5 mg/L (0.0-4.9) H 05/25/24 04:02 NT-Pro-B Natriuret Pep 1218 pg/mL (0-125) H 05/25/24 04:02 Total Protein 6.0 g/dL (6.6-8.7) L 05/27/24 05:05 Albumin 3.0 g/dL (3.5-5.2) L 05/27/24 05:05 Globulin 3.0 g/dL (1.3-4.6) 05/27/24 05:05 Triglycerides 68 mg/dL (0-150) 05/26/24 05:05 Cholesterol 116 mg/dL (0-200) 05/26/24 05:05 LDL Cholesterol, Calc 65 mg/dL (50-129) 05/26/24 05:05 Total VLDL Cholesterol 14 mg/dL (0-30) 05/26/24 05:05 HDL Cholesterol 37 mg/dL (60-100) L 05/26/24 05:05 Cholesterol/HDL Ratio 3.14 mg/dL (0.0-4.40) 05/26/24 05:05 Vitamin B12 1865 pg/mL (232-1245) H 05/25/24 04:02 Folate 18.7 ng/mL (4.8-37.3) 05/26/24 05:05 Procalcitonin 0.15 ng/mL (0-0.5) 05/25/24 04:02 TSH 0.71 uIU/mL (0.27-4.20) 05/25/24 04:02 Nasal MRSA (PCR) Not detected (Not Detecte) 05/25/24 13:15 Influenza A (PCR) Negative (Negative) 05/22/24 14:55 Influenza Type B (PCR) Negative (Negative) 05/22/24 14:55 RSV (PCR) Negative (Negative) 05/22/24 14:55 SARS-CoV-2 (PCR) Positive (Negative) A 05/22/24 14:55 Vitals Last Vital Signs Temp 97.6 F 05/27/24 07:32 Pulse 88 05/27/24 08:08 Resp 18 05/27/24 08:08 BP 109/64 05/27/24 07:32 Pulse Ox 93 05/27/24 10:48 O2 Del Method Nasal Cannula 05/27/24 08:08 O2 Flow Rate 2 05/27/24 08:08 Discharge Plan Discharge Patient Disposition: Home Condition: Stable Prescriptions: New benzonatate 100 mg Capsule 200 mg PO TID Qty: 15 0RF amoxicillin-pot clavulanate 875-125 mg tablet 1 tab PO BID Qty: 8 0RF dexamethasone 6 mg tablet 6 mg PO DAILY Qty: 7 0RF levofloxacin 750 mg tablet 750 mg PO Q24H 4 Days Qty: 4 0RF fluticasone propion-salmeterol [Advair Diskus] 250-50 mcg/dose blister with device 1 inh inhalation BID Qty: 60 0RF tiotropium bromide [Spiriva with HandiHaler] 18 mcg capsule, w/inhalation device 1 cap inhalation DAILY Qty: 14 0RF Rx Instructions: puncture 1 cap using device; one dose = 2 inhalations Continued acetaminophen [Tylenol] 325 mg capsule 325 mg PO QID PRN (Reason: Fever Or Pain) guaifenesin [Mucinex] 1,200 mg tablet extended release 12hr 1,200 mg PO BID Qty: 60 0RF multivitamin Tablet 1 tab PO DAILY Discharge Orders: Discharge Order (Routine); Ordered 05/27/24 Ordered By: Ernie Torres Referrals: Lake Vela MD [Primary Care Provider] - 7-10 days Discharge Diet: Usual diet Discharge Activity: Resume usual activity Patient Instructions: Opioid Safety Activity Restrictions/Additional Instructions: Advised to take inhalation treatment with Advair and Spiriva daily. Advised to continue working with incentive spirometry and flutter valve while at home. Advised to continue taking dexamethasone 6 mg for next 7 days. Advised to follow-up with his primary care provider within the next 4 to 7 days. Can take COVID-19 vaccination in 3 months. Advised to continue following social distancing and isolation protocol for next 10 days. Advised to come back to the ER if fever of more than 101 Fahrenheit, more difficulty breathing than usual or requiring higher oxygen supplementation. Discharge Attestations Time Spent in Discharge Care*: greater than 30 min Specific Discharge Activities: educating patient, educating and/or supporting family/caregiver, discussing with pcp/other providers, discussing with pillowcase maker/social workers/dc planners, documenting/other paperwork and evaluating patient/reviewing data Status at Discharge: Cognitive status at discharge: cognitively intact , Behavioral status at discharge: cooperative , Functional status at discharge: independent ambulation , Overall status at discharge: patient is back to baseline Quality Metrics Clinical Quality Measures [ No reported AMI, CVA or VTE this stay] Coding Level of Care Code 00728 Total time (in minutes) for Discharge: 60 Diagnoses COVID-19 U07.1 Pneumonia J18.9 Hypoxemia R09.02 Dystonic tremor G25.2 Acute hypoxic respiratory failure J96.01
[2024-05-27] MEDS: remdesivir 100 MG in sodium chloride 0.9% (100 ml) 80 ML IV (11:43)
[2024-05-27] MEDS: benzonatate 100 mg Capsule 200 MG PO (11:43)
[2024-05-27 18:10] LABS: Aspergillus AG,EIA,Serum NOT DETECTED; Aspergillus Galactomannan Inde <0.50
[2024-05-28 17:04] LABS: Fungitell 1-3-B Glucan Assay <31 pg/ml; Interpretation Negative (Negative)
== END 2024-05-27 13:21 | disposition home or self-care (01) | DRG 177 ==
LOC: ER 18:04 → MEDSURG 18:41
PROVIDERS: Family Medicine; Internal Medicine; Admitting Provider Internal Medicine; Emergency Provider Emergency Medicine; PCP Family Medicine; Visit Provider Student in an Organized Health Care Education/Training Program
DX: U07.1 COVID-19 (principal); J12.82 Pneumonia due to coronavirus disease 2019; J96.01 Acute respiratory failure with hypoxia; J15.9 Unspecified bacterial pneumonia; G25.2 Other specified forms of tremor; M17.0 Bilateral primary osteoarthritis of knee; K57.90 Diverticulosis of intestine, part unspecified, without perforation or abscess without bleeding; Z90.49 Acquired absence of other specified parts of digestive tract; Z90.710 Acquired absence of both cervix and uterus; Z87.891 Personal history of nicotine dependence; Z88.6 Allergy status to analgesic agent
CPT/HCPCS: 36415; 36600; 71045; 71275; 80048; 80051; 80053; 80061; 82330; 82607; 82746; 82805; 83010; 83036; 83540; 83550; 83605; 83615; 83735; 83880; 84100; 84145; 84443; 84484; 85007; 85025; 85378; 86140; 87040; 87070; 87205; 87305; 87400; 87426; 87449; 87637; 93005; 94640; 94664; 94760; 96365; 96366; 96372; 99285; J0248; J0456; J0696; J1100; J1650; J1956; J7030; J7050; J7626; J9999

== ENCOUNTER → 2024-07-03 11:13 | Outpatient (BNVA) | payer MEDICARE, OTHER, SELFPAY | PROVIDERS: PCP Family Medicine; Visit Provider Family Medicine | DX: J18.9 Pneumonia, unspecified organism (principal) | CPT/HCPCS: 80048; 85025 ==

== ENCOUNTER → 2024-11-19 09:54 | Outpatient (BNVA) | payer MEDICARE, OTHER, SELFPAY | PROVIDERS: PCP Family Medicine; Visit Provider Family Medicine | DX: G25.81 Restless legs syndrome (principal); G25.2 Other specified forms of tremor; U07.1 COVID-19; J12.82 Pneumonia due to coronavirus disease 2019 | CPT/HCPCS: 80048; 83540; 83735; 84443 ==

== ENCOUNTER → 2024-12-10 16:08 | Outpatient (BNVA) | payer MEDICARE, OTHER, SELFPAY | PROVIDERS: PCP Family Medicine; Visit Provider Family Medicine | DX: T14.8XXA Other injury of unspecified body region, initial encounter (principal); X58.XXXA Exposure to other specified factors, initial encounter | CPT/HCPCS: 87070 ==